=== PATIENT | male | born 1940 | race Caucasian/White ===

== ENCOUNTER 2019-07-27 21:16 | Emergency (ER) | payer MEDICARE, OTHER, SELFPAY ==
--- NOTE | ~2019-07-27 | XR_ITS ---
EXAMINATION: XR abdomen obstructive series DATE: 07/27/2019 23:04 INDICATION: Abdominal pain post peritoneal dialysis catheter placement TECHNIQUE: Frontal supine and upright views of the abdomen were obtained. COMPARISON: 02/27/2019 FINDINGS: Right lower quadrant peritoneal dialysis catheter with distal tip coiled in the deep pelvis. No dilat ed gas-filled loops of bowel. Small amount of free intraperitoneal gas along the falciform ligament a nd below the left hemidiaphragm likely related to peritoneal dialysis catheter placement. Opacities a t the bilateral lower lung zones consistent with small bilateral pleural effusions and associated bas ilar atelectasis and/or pneumonia. Cardiomegaly. IMPRESSION: 1. Small amount of free intraperineal gas in the upper abdomen likely related to peritoneal dialysis catheter placement. 2. Small bilateral pleural effusions with basilar opacities which could represent atelectasis and/or pneumonia. 3. Cardiomegaly. Reviewed, dictated and finalized at location A. [facility] PREPARATION IMPRESSION: 1. Small amount of free intraperineal gas in the upper abdomen likely related to peritoneal dialysis catheter placement. 2. Small bilateral pleural effusions with basilar opacities which could represe nt atelectasis and/or pneumonia. 3. Cardiomegaly.
[2019-07-27 21:22] VITALS: BP 161/67; PULSE 81; RESP 22; TEMP 36.1; O2SAT 100
--- NOTE | 2019-07-27 21:34 | ED.ABDPAIN ---
HPI - Abdominal Pain General Chief Complaint: Abdominal Pain <Igor Christy MD - Last Filed: 07/28/19 03:02> Stated Complaint: dehydrating <Igor Christy MD - Last Filed: 07/28/19 03:02> Time Seen by Provider: 07/27/19 21:32 <Igor Christy MD - Last Filed: 07/28/19 03:02> Source: patient, family () and EMS <Igor Christy MD - Last Filed: 07/28/19 03:02> Mode of arrival: EMS <Igor Christy MD - Last Filed: 07/28/19 03:02> Limitations: clinical condition <Igor Christy MD - Last Filed: 07/28/19 03:02> History of Present Illness HPI narrative: A 78 y/o male presents to the ED with constant generalized ABD pain beginning at 10 AM this morning. He states that he had a dialysis catheter placed this morning around 8:15 AM at [facility] in [place] and that they were going to keep him but decided not too . He reports associated nausea and dry mouth since. He notes that he feels like he has to urinate but can't, however his who is bedside reports that the pt has not been drinking very much lately. He also notes that he believes he is dehydrated and is in need of IV fluids. He states that he has chronic unchanged BLE edema. He denies any vomiting or diarrhea. <Igor Christy MD - Last Filed: 07/28/19 03:02> MD elicited complaint: abdominal pain <Igor Christy MD - Last Filed: 07/28/19 03:02> Pertinent past history: gastrointestinal bleeding <Igor Christy MD - Last Filed: 07/28/19 03:02> Onset (ago): hour(s) (11.5) <Igor Christy MD - Last Filed: 07/28/19 03:02> Pain Consistency: constant <Igor Christy MD - Last Filed: 07/28/19 03:02> Location: diffuse <Igor Christy MD - Last Filed: 07/28/19 03:02> Context: confirms recent surgery/procedure <Igor Christy MD - Last Filed: 07/28/19 03:02> Associated symptoms: nausea and other (dry mouth and urinary retention) <Igor Christy MD - Last Filed: 07/28/19 03:02> Related Data Home Medications: Home Medications Medication Instructions Recorded Confirmed aspirin 81 mg tablet,delayed 81 mg PO DAILY 05/19/19 06/24/19 release atorvastatin 20 mg tablet 20 mg PO DAILY 05/19/19 06/24/19 blood sugar diagnostic #10 each 05/19/19 06/24/19 furosemide 20 mg tablet 40 mg PO BID tablet 05/19/19 06/24/19 multivitamin 1 tablet PO DAILY 05/19/19 06/24/19 omega-3 fatty acids 1,000 mg 1,000 mg PO BID 05/19/19 06/24/19 capsule tamsulosin 0.4 mg capsule 0.4 mg PO DAILY 05/19/19 06/24/19 vit C 250 mg-E 200 unit-zinc 40 1 tablet PO BID 05/19/19 06/24/19 mg-copper 1 [id number] capsule insulin lispro 100 unit/mL 1 sliding scale dose SUB-Q 06/24/19 06/24/19 subcutaneous solution USEASDIRECTD <Igor Christy MD - Last Filed: 07/28/19 03:02> Allergies/Adverse Reactions: Allergies Allergy/AdvReac Type Severity Reaction Status Date / Time gabapentin Allergy Severe Weakness Verified 06/24/19 09:10 <Igor Christy MD - Last Filed: 07/28/19 03:02> Review of Systems Review of Systems: All systems reviewed & are unremarkable except as noted in HPI and below <Igor Christy MD - Last Filed: 07/28/19 03:02> ENT: Reports dry mouth <Igor Christy MD - Last Filed: 07/28/19 03:02> Gastrointestinal: Gastrointestinal: Reports abdominal pain (generalized), Denies diarrhea, Reports nausea and Denies vomiting <Igor Christy MD - Last Filed: 07/28/19 03:02> Genitourinary: Genitourinary: Reports other (urinary retention) <Igor Christy MD - Last Filed: 07/28/19 03:02> [facility] Past Medical History Medical History: Medical History (Updated 07/28/19 @ 01:15 by Amrita Ramirez PA-C) A-fib Anemia Arthritis Bronchitis CAD (coronary artery disease) Cataracts, bilateral CHF (congestive heart failure) Chronic renal failure CKD (chronic kidney disease) Dialysis jensen
[2019-07-27 22:04] LABS: Basophils Percent Auto 0.2 % (0.2-1.2); Hematocrit 34.1 % (42.0-52.0); Hemoglobin 11.1 g/dL (14.0-18.0); Immature Granulocyte Absolute 0.02 K/mm3 (0.00-0.031); Immature Granulocyte Percent A 0.2 % (0-0.5); Lymphocytes Absolute Auto 0.16 K/mm3 (0.9-3.2); Lymphocytes Percent Auto 1.8 % (18.3-44.2); Mean Corpuscular HGB Conc 32.6 g/dl (32-36); Mean Corpuscular Hemoglobin 34.2 pg (26-34); Mean Corpuscular Volume 104.9 fl (80-100); Mean Platelet Volume 11.9 fl (7.4-10.4); Monocytes Absolute Auto 0.4 K/mm3 (0.1-0.6); Monocytes Percent Auto 4.3 % (2.6-8.5); Neutrophils Absolute Auto 8.5 K/mm3 (1.3-6.7); Neutrophils Percent Auto 93.5 % (45.5-73.1); Platelet Count Result 171 k/mm3 (150-375); Red Blood Count 3.25 M/mm3 (4.6-6.20); Red Cell Distribution Width 13.7 % (11.5-14.5); White Blood Count 9.1 K/mm3 (4.5-10.0)
[2019-07-27 22:17] LABS: Alanine Aminotransferase 20 U/L (4-50); Albumin Level 3.5 g/dL (3.5-5.1); Alkaline Phosphatase 181 U/L (38-126); Aspartate Amino Transferase 27 U/L (17-59); Bilirubin,Total 0.9 mg/dL (0.2-1.3); Blood Urea Nitrogen 39 mg/dL (9-20); Calcium 9.1 mg/dL (8.4-10.2); Carbon Dioxide 21 mmol/L (22-30); Chloride 94 mmol/L (98-107); Estimated CRCL calculation 23 ml/min; Estimated Glomerular Filt Rate 25; Glucose 331 mg/dL (75-110); Lipase 16 U/L (23-300); Potassium 4.5 mmol/L (3.4-5.0); Sodium 132 mmol/L (137-145)
[2019-07-27 22:33] LABS: Add Urine Microscopic? YES; Appearance Urine Clear (Clear); Bacteria Urine Trace /hpf; Bilirubin Urine Negative (Negative); Blood Urine Negative (Negative); Color Urine Yellow (Yellow); Glucose Urine UA 2+ mg/dL (Negative); Ketones Urine Trace mg/dL (Negative); Leukocyte Esterase Ur Negative LEU/UL (Negative); Nitrate Urine Negative (Negative); Protein Urine 3+ mg/dL (Negative); Specific Grav Ur 1.016 (1.001-1.035); Squamous Epithelial Cell Urine Occasional /hpf (Few); Urobilinogen Urine Negative mg/dL (<2.0); WBC Urine 0-3 /hpf
--- NOTE | 2019-07-27 22:42 | PC.NURSE ---
LATE ENTRY; AT 2155 THIS RN ATTEMPTED X 3 TO START IV ACCESS W/O SUCCESS, PT TOLERATED WELL.
[2019-07-27 23:30] VITALS: BP 152/66; PULSE 82; RESP 18; O2SAT 100
[2019-07-27] MEDS: ONDANSETRON INJ 4 MG/2 ML VIAL IV PUSH (23:30)
[2019-07-27] MEDS: SODIUM CHLORIDE 0.9% IV 1,000 ML 999 ML IV CONT (23:31)
[2019-07-28 01:30] VITALS: BP 155/62; PULSE 83; RESP 24; O2SAT 100
== END 2019-07-28 01:40 | disposition home or self-care (01) ==
PROVIDERS: Emergency Provider Emergency Medicine; PCP Internal Medicine
DX: R10.84 Generalized abdominal pain (principal); I13.2 Hypertensive heart and chronic kidney disease with heart failure and with stage 5 chronic kidney disease, or end stage renal disease; E11.22 Type 2 diabetes mellitus with diabetic chronic kidney disease; N18.6 End stage renal disease; I50.9 Heart failure, unspecified; I48.91 Unspecified atrial fibrillation; M19.90 Unspecified osteoarthritis, unspecified site; I25.10 Atherosclerotic heart disease of native coronary artery without angina pectoris; Z99.2 Dependence on renal dialysis; Z79.4 Long term (current) use of insulin; E78.00 Pure hypercholesterolemia, unspecified; Z86.73 Personal history of transient ischemic attack (TIA), and cerebral infarction without residual deficits; E03.9 Hypothyroidism, unspecified; E83.119 Hemochromatosis, unspecified; Z98.890 Other specified postprocedural states; Z98.42 Cataract extraction status, left eye; Z98.41 Cataract extraction status, right eye; Z79.82 Long term (current) use of aspirin; I51.7 Cardiomegaly; R91.8 Other nonspecific abnormal finding of lung field
CPT/HCPCS: 36415; 51701; 74019; 80053; 81001; 83690; 85025; 96361; 96374; 99284; J2405; J7030

== ENCOUNTER 2019-07-28 12:09 | Inpatient (IN) | payer MEDICARE, OTHER, SELFPAY ==
[2019-07-28] VITALS (21 sets, daily range): BP systolic 115–145; BP diastolic 44–96; PULSE 59–88; RESP 15–22; TEMP 36.4–37.2; O2SAT 95–97
--- NOTE | 2019-07-28 12:26 | ED.AMS ---
HPI - Altered Mental Status General Chief Complaint: Altered Mental Status Stated Complaint: AMS Time Seen by Provider: 07/28/19 12:23 Source: patient and RN notes reviewed Mode of arrival: EMS Limitations: no limitations History of Present Illness HPI narrative: Pt is a y/o male who presents to the ED, via EMS, with c/o AMS which began prior to arrival to the ED. The pt had a peritoneal catheter line procedure and an umbilical hernia repair with mesh performed yesterday morning at [facility] in [place]. He was discharged shortly after the procedure with a follow-up appointment. Pt reports he was seen yesterday evening at [place] [facility] for urinary incontinence after his surgical procedure was performed. The pt was hemodialysis today at [facility], where they began to notice altered mental status. They report the pt began to exhibit AMS and slurred speech, which prompted them to send the pt to the ED to be evaluated. EMS reports they were unable to read to pt?s blood glucose level en route to the ED, as it said it was too high. This could be due to the fact that the pt?s insulin pump was stopped 2 days prior to the surgical procedure. Discharged yesterday after saying to follow up MD complaint: altered mental status Onset (ago): hour(s) (prior to arrival to the ED) Consistency of symptoms: constant Context: other (post-surgical complication) Associated symptoms: other (slurred speech; urinary incontinence) Related Data Home Medications Medication Instructions Recorded Confirmed aspirin 81 mg tablet,delayed 81 mg PO DAILY 05/19/19 06/24/19 release atorvastatin 20 mg tablet 20 mg PO DAILY 05/19/19 06/24/19 blood sugar diagnostic #10 each 05/19/19 06/24/19 furosemide 20 mg tablet 40 mg PO BID tablet 05/19/19 06/24/19 multivitamin 1 tablet PO DAILY 05/19/19 06/24/19 omega-3 fatty acids 1,000 mg 1,000 mg PO BID 05/19/19 06/24/19 capsule tamsulosin 0.4 mg capsule 0.4 mg PO DAILY 05/19/19 06/24/19 vit C 250 mg-E 200 unit-zinc 40 1 tablet PO BID 05/19/19 06/24/19 mg-copper 1 [id number] capsule insulin lispro 100 unit/mL 1 sliding scale dose SUB-Q 06/24/19 06/24/19 subcutaneous solution USEASDIRECTD Allergies Allergy/AdvReac Type Severity Reaction Status Date / Time gabapentin Allergy Severe Weakness Verified 06/24/19 09:10 Review of Systems Review of Systems: All systems reviewed & are unremarkable except as noted in HPI and below Genitourinary: Genitourinary: Reports urinary incontinence Neurologic: Reports other (AMS; slurred speech) [facility] Past Medical History Medical History (Updated 07/28/19 @ 16:09 by Juanita Romero MD) A-fib Anemia Arthritis Bronchitis CAD (coronary artery disease) Cataracts, bilateral CHF (congestive heart failure) Chronic renal failure CKD (chronic kidney disease) Dialysis patient DM (diabetes mellitus) Essential hypertension Hemochromatosis History of GI bleed History of inguinal hernia History of pneumonia Hypercholesterolemia Hypothyroidism Renal disease Shingles TIA (transient ischemic attack) Type 2 diabetes mellitus without complication, with long-term current use of insulin Wrist fracture, left Surgical History Surgical History (Updated 07/27/19 @ 21:45 by Jose E Richards) H/O left wrist surgery History of inguinal hernia repair Hx of bilateral cataract extraction Social History Social History (Updated 07/27/19 @ 21:45 by Jose E Richards) Smoking status: Former smoker Second hand tobacco smoke exposure: Yes Smoking end date: 06/23/1966 Alcohol intake: never Gender identity (if verbalized by the patient): Male Exam Const: General: cooperative, no acute distress and alert Nutritional Appearance: well nourished Orientation/consciousness: patient oriented x3 Limitations: no limitations HENMT: Mouth: Yes lip normal and Yes moist mucous membranes Resp: Effort & Inspection: normal respiratory effort Auscultation: clear to auscultation bila
[2019-07-28 12:30] LABS: Glucose Point of Care > 500 (65-105)
[2019-07-28 13:03] LABS: Hematocrit 33.9 % (42.0-52.0); Hemoglobin 10.8 g/dL (14.0-18.0); Mean Corpuscular HGB Conc 31.9 g/dl (32-36); Mean Corpuscular Hemoglobin 34.3 pg (26-34); Mean Corpuscular Volume 107.6 fl (80-100); Mean Platelet Volume 12.1 fl (7.4-10.4); Platelet Count Result 181 k/mm3 (150-375); Red Blood Count 3.15 M/mm3 (4.6-6.20); Red Cell Distribution Width 14.1 % (11.5-14.5)
[2019-07-28 13:12] LABS: Band Neutrophils Percent 1 % (0-6); Lymphocytes Absolute Manual 0.66 K/mm3 (1.1-4.5); Monocytes Absolute Manual 0.22 K/mm3 (0.1-0.90); Monocytes Percent Manual 2 % (3-9); Neutrophils Absolute Manual 10.12 K/mm3 (1.3-6.7); Neutrophils Percent Manual 91 % (46-73); Platelet Estimate Adequate (Adequate); Total Cells Counted 100
[2019-07-28 13:13] LABS: Crenated RBC 2+ (NORMAL)
[2019-07-28 13:32] LABS: Alanine Aminotransferase 24 U/L (4-50); Albumin Level 3.5 g/dL (3.5-5.1); Alkaline Phosphatase 174 U/L (38-126); Aspartate Amino Transferase 34 U/L (17-59); Blood Urea Nitrogen 57 mg/dL (9-20); Carbon Dioxide 9 mmol/L (22-30); Chloride 92 mmol/L (98-107); Estimated CRCL calculation 18 ml/min; Estimated Glomerular Filt Rate 18; Glucose 585 mg/dL (75-110); Potassium 6.1 mmol/L (3.4-5.0); Sodium 128 mmol/L (137-145)
[2019-07-28] MEDS: INSULIN HUMAN REGULAR (*BKC) 100 UNITS/ML 10 UNITS IV PUSH (13:46)
[2019-07-28 14:18] LABS: Add Urine Microscopic? YES; Amorphous Sediment Urine Few; Appearance Urine Clear (Clear); Bilirubin Urine Negative (Negative); Blood Urine 1+ (Negative); Color Urine Yellow (Yellow); Glucose Urine UA 3+ mg/dL (Negative); Ketones Urine Trace mg/dL (Negative); Leukocyte Esterase Ur Negative LEU/UL (Negative); Nitrate Urine Negative (Negative); Protein Urine 3+ mg/dL (Negative); Specific Grav Ur 1.017 (1.001-1.035); Squamous Epithelial Cell Urine Few /hpf (Few); Urobilinogen Urine Negative mg/dL (<2.0); WBC Urine 0-3 /hpf
--- NOTE | 2019-07-28 16:19 | PC.NURSE ---
This patient, Tadeo Jean-Baptiste, was admitted to 2 Medical Room 259-01. Patient/family oriented to hospital policies and general routines including ID bracelet, bed and alarms, visiting hours, pain management, procedures, bathroom and other care routines, personal items, smoking policy, room service/diet, and visiting hours. Valuables list has been completed. Information on how to activate the Rapid Response Team has been discussed. Patient/Family are encouraged to report perceived risks to care and to ask questions if they do not understand what they are told or what they should do.
[2019-07-28] MEDS: INSULIN ASPART (*BKC) 100 UNITS/ML 10 UNITS SUB-Q ×2 (17:09→18:50)
--- NOTE | 2019-07-28 17:38 | PC.NURSE ---
Spoke with dialysis nurse and clarified when Dr. Colunga is planning for dialysis treatment. Per dialysis nurse orders will be for dialysis tomorrow 07/29/2019. Notified China Cortes NP patient of plans.
--- NOTE | 2019-07-28 17:50 | PC.NURSE ---
Notified by dialysis nurse that Dr. Wiley will be in to see patient at the bedside and will more than likely have orders placed for hemodiaylsis tonight 07/28/2019. Updated China Cortes NP on plan of care and that patient needs code status updated in chart.
[2019-07-28 17:55] LABS: Glucose Point of Care > 500 (65-105)
--- NOTE | 2019-07-28 18:00 | PM.IMHP ---
H&P: HPI History of Present Illness Chief complaint: diabetic hyperkalemia/end stage renal disease on d Narrative: Tadeo Jean-Baptiste is a 78 year old male WHO HAS END-STAGE RENAL DISEASE AND HAS DIALYSIS ON Friday. The patient went to dialysis today but had been confused and had slurred speech. So therefore he was sent to the emergency room here at [facility]. Patient was here at [facility] last night as well but was sent home. The patient stated that he had his insulin pump off 2 days prior to having surgery. It looks like his surgery was yesterday at [facility]. He had a peritoneal dialysis in the ventral hernia repair. The patient stated that he did not refill his insulin cartridge prior to going to dialysis today. So he may have gone 3 days without any insulin. Was noted to be 6.1 today and glucose 585. Yesterday his blood sugar was 331. He is a very brittle diabetic and typically uses his own insulin pump. However today the patient is too confused to be able to uses pump. Anion gap was noted to be 27. Patient was given IV insulin in the emergency room. However the patient was still in the 500s we gave him subcu NovoLog as well. Nephrology has been consulted. Date of service 07/28/2019 Review of Systems Review of Systems: Narrative: Patient stated he has very dry any feels dehydrated. He is very hard of hearing but does not have his hearing aids with him. All systems reviewed & are unremarkable except as noted in HPI and below Constitutional: Constitutional: Reports as per HPI and Reports no additional constitutional complaints Eyes: Eyes: Reports as per HPI and Reports no additional eye complaints ENT: Reports system reviewed and no additional complaints, except as documented, Reports Normal hearing present and Reports hearing loss (Very hard of hearing does not have hearing aids with him) Cardiovascular: Cardiovascular: Reports no additional cardiovascular complaints Respiratory: Respiratory: Reports no additional respiratory complaints and Reports no additional respiratory complaints Gastrointestinal: Gastrointestinal: Reports as per HPI and Reports no additional gastrointestinal complaints Musculoskeletal: Musculoskeletal: Reports no additional musculoskeletal complaints Integumentary/Breasts: Skin/Breast: Reports system reviewed and no additional complaints, except as docu and Reports as per HPI Neurologic: Reports system reviewed and no additional complaints, except as documented, Reports as per HPI and Reports Normal hearing present Psychiatric: Psychiatric: Reports no additional psychiatric complaints and Reports as per HPI Endocrine: Endocrine: Reports no additional endocrine complaints Hematologic/Lymphatic: Hematologic/Lymphatic: Reports no additional hematologic/lymphatic complaints Allergic/Immunologic: Allergic/Immunologic: Reports no additional allergic/immunologic complaints [facility] Past Medical History Medical History (Updated 07/28/19 @ 18:24 by China Cortes NP) A-fib Anemia Of chronic disease Arthritis AV fistula Left upper arm BPH (benign prostatic hyperplasia) Bronchitis CAD (coronary artery disease) Cataracts, bilateral CHF (congestive heart failure) Diastolic Chronic renal failure End-stage renal disease on dialysis Friday CKD (chronic kidney disease) Dialysis patient DM (diabetes mellitus) Essential hypertension Hemochromatosis History of GI bleed History of inguinal hernia History of pneumonia Hypercholesterolemia Hypothyroidism Peritoneal dialysis catheter in place Renal disease Shingles TIA (transient ischemic attack) X2 Type 2 diabetes mellitus without complication, with long-term current use of insulin Wrist fracture, left Surgical History Surgical History (Updated 07/28/19 @ 18:11 by China Cortes NP) H/O left wrist surgery Pin History of inguinal hernia repair Ventral hernia repair yesterday
--- NOTE | 2019-07-28 18:24 | PM.CNNEP ---
Assessment and Plan Assessment and plan (1) End stage renal disease on dialysis: Code(s): N18.6 - End stage renal disease; Z99.2 - Dependence on renal dialysis Status: Acute Assessment and Plan: The patient has end-stage kidney disease. He is on hemodialysis now. He is switching over to peritoneal dialysis soon. For that purpose of peritoneal dialysis catheter was placed this week. (2) Acute hyperkalemia: Code(s): E87.5 - Hyperkalemia Status: Acute Assessment and Plan: His potassium is elevated. We will do dialysis today. Of course is high sugars have something to do with this as well. (3) Diabetes mellitus with hyperglycemia, with long-term current use of insulin: Qualifiers: Diabetes mellitus type: type 2 Qualified Code(s): E11.65 - Type 2 diabetes mellitus with hyperglycemia; Z79.4 - halfway (current) use of insulin Code(s): E11.65 - Type 2 diabetes mellitus with hyperglycemia; Z79.4 - termination clerk (current) use of insulin Status: Chronic Assessment and Plan: He has a very high glucose. His bicarbonate level is very low. We can check a beta hydroxybutyrate. His anion gap is high. The high anion gap could be due to his renal insufficiency and DKA is always in the differential. We can repeat this bicarbonate level before he starts dialysis and see where we are. (4) CHF (congestive heart failure): Code(s): I50.9 - Heart failure, unspecified Status: Chronic Assessment and Plan: The patient has a history of congestive heart failure. He sees a technical writer. His last echo shows diastolic dysfunction but normal LV function. (5) Anemia: Code(s): D64.9 - Anemia, unspecified Status: Chronic Assessment and Plan: He has anemia of chronic kidney disease. He gets Epogen with dialysis. (6) A-fib: Code(s): I48.91 - Unspecified atrial fibrillation Status: Chronic Assessment and Plan: He has atrial fibrillation and is on Eliquis for this. (7) BPH (benign prostatic hyperplasia): Code(s): N40.0 - Benign prostatic hyperplasia without lower urinary tract symptoms Status: Chronic Assessment and Plan: He is having some trouble urinating. They were able to get a urinalysis and this does not show infection. History of Present Illness Reason for Consult Consult date: 07/28/19 Chief Complaint Chief complaint: diabetic hyperkalemia/end stage renal disease on d History of Present Illness Narrative: Tadeo is a very pleasant 78-year-old gentleman who has multiple medical problems including end-stage renal disease on dialysis 3 times a week, recent peritoneal dialysis catheter placement, diabetes, hypertension, atrial fibrillation, hyperlipidemia, congestive heart failure, hypothyroidism, BPH. The patient recently had his peritoneal dialysis catheter placed. His insulin pump was stopped for purposes of the surgery. However the pump was never restarted. He went to dialysis this morning at [facility] and he was confused and hypoxic. The patient went to the emergency room from there. He has not had his dialysis yet. In the emergency room he was found to have a very high sugar and he was admitted. His potassium is also high at 6. He denies any chest pain or shortness of breath. He has been eating okay. He has no bloody foamy cloudy or smelly urine. He does normally makes some urine but today he has not been able to make much. He has had no fevers or chills. No pain with urination. Social history: He does not smoke or drink. Family history: Negative for kidney disease Review of Systems Constitutional: Constitutional: Reports no additional constitutional complaints Eyes: Eyes: Reports no additional eye complaints ENT: Reports system reviewed and no additional complaints, except as documented Cardiovascular: Cardiovascular: Reports no additional cardiovascular complaints Res
[2019-07-28] MEDS: SODIUM CHLORIDE 0.9% IV 500 ML IV CONT (18:36)
[2019-07-28 18:42] LABS: Blood Urea Nitrogen 63 mg/dL (9-20); Calcium 8.9 mg/dL (8.4-10.2); Carbon Dioxide 13 mmol/L (22-30); Chloride 91 mmol/L (98-107); Estimated CRCL calculation 17 ml/min; Estimated Glomerular Filt Rate 17; Glucose 571 mg/dL (75-110); Potassium 4.9 mmol/L (3.4-5.0); Sodium 128 mmol/L (137-145)
[2019-07-28 18:49] LABS: Beta-Hydroxybutyrate/Acetoacetate 3.42 mmol/L (0.02-0.27)
[2019-07-28 18:55] LABS: Hemoglobin A1C 7.9 % (<5.7)
[2019-07-28 19:00] LABS: Glucose Point of Care 498 (65-105)
[2019-07-28 19:04] LABS: Albumin Level 3.4 g/dL (3.5-5.1); Phosphorus 7.3 mg/dL (2.5-4.5)
[2019-07-28 19:13] LABS: Hepatitis B Surface Antigen Negative (Negative)
[2019-07-28 19:29] LABS: Hepatitis B Surface Anti Res Negative
[2019-07-28 19:41] LABS: Thyroid Stimulating Hormone Reflex 0.869 uIU/mL (0.465-4.68)
[2019-07-28 20:04] LABS: Blood Urea Nitrogen 57 mg/dL (9-20); Calcium 7.5 mg/dL (8.4-10.2); Carbon Dioxide 14 mmol/L (22-30); Chloride 99 mmol/L (98-107); Estimated CRCL calculation 19 ml/min; Estimated Glomerular Filt Rate 20; Glucose 485 mg/dL (75-110); Potassium 4.2 mmol/L (3.4-5.0); Sodium 131 mmol/L (137-145)
--- NOTE | 2019-07-28 20:23 | PC.NURSE ---
Patient transferred to ICU at 2014. Patient received by Abelino in ICU.
[2019-07-28 21:06] LABS: Glucose Point of Care 455 (65-105)
[2019-07-28] MEDS: EPOETIN ALFA 10,000 UNITS/ML VIAL 10000 UNITS IV PUSH (21:14)
[2019-07-28] MEDS: INSULIN HUMAN REGULAR (*BKC) 100 UNITS in SODIUM CHLORIDE 0.9% IV 99 ML 7.9 UNITS IV CONT (21:16)
--- NOTE | 2019-07-28 21:43 | PC.NURSE ---
Start insulin drip per Dr. Blanc even while patient is getting dialysis. No bolus. Do not take off any fluid during dialysis per Dr. Blanc. Brigette dialysis nurse notified. Dr. Wiley notified. Dr. Wiley okay with no fluid removal and the start of the insulin drip.
[2019-07-28 22:06] LABS: Glucose Point of Care 311 (65-105)
[2019-07-28 23:05] LABS: Glucose Point of Care 259 (65-105)
[2019-07-29] VITALS (11 sets, daily range): BP systolic 121–165; BP diastolic 49–91; PULSE 65–77; RESP 12–26; TEMP 36.2–36.9; O2SAT 90–99
[2019-07-29] MEDS: APIXABAN 2.5 MG TABLET PO ×3 (00:04→16:40)
[2019-07-29] MEDS: FINASTERIDE 5 MG TABLET PO ×2 (00:04→17:35)
[2019-07-29] MEDS: FUROSEMIDE 40 MG TABLET PO ×3 (00:04→16:40)
[2019-07-29 00:11] LABS: Glucose Point of Care 197 (65-105)
[2019-07-29 00:19] LABS: Glucose Point of Care > 500 (65-105)
[2019-07-29 01:04] LABS: Blood Urea Nitrogen 39 mg/dL (9-20); Calcium 8.5 mg/dL (8.4-10.2); Carbon Dioxide 26 mmol/L (22-30); Chloride 93 mmol/L (98-107); Estimated CRCL calculation 26 ml/min; Estimated Glomerular Filt Rate 29; Glucose 190 mg/dL (75-110); Potassium 3.4 mmol/L (3.4-5.0); Sodium 131 mmol/L (137-145)
[2019-07-29 01:21] LABS: Glucose Point of Care 142 (65-105)
--- NOTE | 2019-07-29 01:25 | PC.NURSE ---
Spoke with Dr. Perez regarding Agap of 12. Okay to stop insulin drip and order sliding scale insulin
[2019-07-29 02:25] LABS: Glucose Point of Care 108 (65-105)
[2019-07-29 04:04] LABS: Glucose Point of Care 132 (65-105)
[2019-07-29 04:34] LABS: Basophils Percent Auto 0.3 % (0.2-1.2); Eosinophils Percent Auto 0.3 % (0-4.4); Hematocrit 31.1 % (42.0-52.0); Hemoglobin 10.4 g/dL (14.0-18.0); Immature Granulocyte Absolute 0.03 K/mm3 (0.00-0.031); Immature Granulocyte Percent A 0.3 % (0-0.5); Lymphocytes Absolute Auto 0.32 K/mm3 (0.9-3.2); Lymphocytes Percent Auto 2.9 % (18.3-44.2); Mean Corpuscular HGB Conc 33.4 g/dl (32-36); Mean Corpuscular Volume 101.6 fl (80-100); Mean Platelet Volume 11.7 fl (7.4-10.4); Monocytes Absolute Auto 1.1 K/mm3 (0.1-0.6); Neutrophils Absolute Auto 9.4 K/mm3 (1.3-6.7); Neutrophils Percent Auto 86.2 % (45.5-73.1); Platelet Count Result 167 k/mm3 (150-375); Red Blood Count 3.06 M/mm3 (4.6-6.20); Red Cell Distribution Width 13.7 % (11.5-14.5); White Blood Count 10.9 K/mm3 (4.5-10.0)
[2019-07-29 04:56] LABS: Alanine Aminotransferase 23 U/L (4-50); Albumin Level 3.1 g/dL (3.5-5.1); Alkaline Phosphatase 157 U/L (38-126); Aspartate Amino Transferase 40 U/L (17-59); Bilirubin,Total 0.6 mg/dL (0.2-1.3); Blood Urea Nitrogen 40 mg/dL (9-20); Calcium 8.4 mg/dL (8.4-10.2); Carbon Dioxide 25 mmol/L (22-30); Chloride 95 mmol/L (98-107); Estimated CRCL calculation 23 ml/min; Estimated Glomerular Filt Rate 25; Glucose 149 mg/dL (75-110); Magnesium 2.1 mg/dL (1.6-2.3); Potassium 3.9 mmol/L (3.4-5.0); Sodium 134 mmol/L (137-145)
[2019-07-29] MEDS: LEVOTHYROXINE SODIUM 125 MCG TABLET PO (06:32)
[2019-07-29 08:17] LABS: Glucose Point of Care 270 (65-105)
--- NOTE | 2019-07-29 08:17 | PM.PNNEP ---
Progress Note: A&P Assessment and Plan (1) End stage renal disease on dialysis: Code(s): N18.6 - End stage renal disease; Z99.2 - Dependence on renal dialysis Status: Acute Assessment and Plan: The patient has end-stage kidney disease. He received dialysis last night. He has a PD catheter in place for when he switches to PD. (2) Acute hyperkalemia: Code(s): E87.5 - Hyperkalemia Status: Acute Assessment and Plan: His potassium is back to normal after dialysis. (3) Diabetes mellitus with hyperglycemia, with long-term current use of insulin: Qualifiers: Diabetes mellitus type: type 2 Qualified Code(s): E11.65 - Type 2 diabetes mellitus with hyperglycemia; Z79.4 - superintendent terminal (current) use of insulin Code(s): E11.65 - Type 2 diabetes mellitus with hyperglycemia; Z79.4 - superintendent terminal (current) use of insulin Status: Chronic Assessment and Plan: Sugars have improved. Beta hydroxybutyrate was elevated anywhere he received insulin drip last night. Now the insulin drip is off, and the sugars are better. His anion gap was 21 yesterday with his bicarb of 9. Now it is down to 14 with a bicarb of 25. This is probably his baseline. (4) CHF (congestive heart failure): Code(s): I50.9 - Heart failure, unspecified Status: Chronic Assessment and Plan: The patient has a history of congestive heart failure. He sees a implementation director. His last echo shows diastolic dysfunction but normal LV function. Volume status looks okay. (5) Anemia: Code(s): D64.9 - Anemia, unspecified Status: Chronic Assessment and Plan: He has anemia of chronic kidney disease. He gets Epogen with dialysis. (6) A-fib: Code(s): I48.91 - Unspecified atrial fibrillation Status: Chronic Assessment and Plan: He has atrial fibrillation and is on Eliquis for this. (7) BPH (benign prostatic hyperplasia): Code(s): N40.0 - Benign prostatic hyperplasia without lower urinary tract symptoms Status: Chronic Assessment and Plan: He is having some trouble urinating. They were able to get a urinalysis and this does not show infection. I asked nursing to get a bladder scan to see if he is retaining. He is already on finasteride and tamsulosin. Subjective Date/time seen: 07/29/19 08:17 Interval history: Patient is a little confused but better. He says he is still not making urine. The nurse agrees. He says that he made urine several times per day before the PD catheter went in. He has no chest pain or shortness of breath. Review of Systems Cardiovascular: Cardiovascular: Reports no additional cardiovascular complaints Respiratory: Respiratory: Reports no additional respiratory complaints Gastrointestinal: Gastrointestinal: Reports no additional gastrointestinal complaints Genitourinary: Genitourinary: Reports no additional male genitourinary complaints Exam Narrative: Exam Narrative: Well developed well-nourished in no acute distress Lungs clear Heart regular without rub Abdomen bowel sounds positive soft nontender Extremities no edema Skin no rash Objective Data Vital Signs Vital Signs: Vital Signs - 24 hr 07/28/19 12:05 07/28/19 14:29 07/28/19 16:28 Temperature 36.4 C Pulse Rate 88 75 73 Respiratory Rate 22 H 15 Blood Pressure 129/44 L 115/55 L Pulse Oximetry 97 96 07/28/19 16:30 07/28/19 20:00 07/28/19 20:20 Temperature 36.6 C 36.7 C Pulse Rate 70 66 67 Respiratory Rate 16 19 20 Blood Pressure 136/44 L 145/58 H Pulse Oximetry 97 96 97 07/28/19 20:27 07/28/19 20:43 07/28/19 20:56 Temperature 36.7 C Pulse Rate 69 59 L 65 Respiratory Rate 18 Blood Pressure 139/60 145/58 H 142/55 H Pulse Oximetry 97 07/28/19 21:00 07/28/19 21:15 07/28/19 21:30 Temperature Pulse Rate 64 65 66 Respiratory Rate Blood Pressure 133/80 144/51 H 139/55 L Pulse Oximet
[2019-07-29] MEDS: ASPIRIN 81 MG ENTERIC TABLET PO (08:26)
[2019-07-29] MEDS: ATORVASTATIN 20 MG TABLET PO (08:26)
[2019-07-29] MEDS: INSULIN ASPART (*BKC) 100 UNITS/ML SUB-Q ×3 (08:27→16:59)
[2019-07-29] MEDS: OMEGA 3 POLYUNSAT FATTY ACIDS 1 GM CAP PO (08:27)
[2019-07-29] MEDS: OPTI-GEN TAB 2 TABLET PO (08:27)
[2019-07-29] MEDS: TAMSULOSIN HCL 0.4 MG CAPSULE PO (08:27)
[2019-07-29] MEDS: INSULIN DETEMIR 100 UNITS/ML SUB-Q (11:07)
[2019-07-29 12:44] LABS: Glucose Point of Care 333 (65-105)
--- NOTE | 2019-07-29 13:01 | WPDCNINT ---
Assessment and Plan Assessment and plan (1) DKA (diabetic ketoacidoses): Code(s): E11.10 - Type 2 diabetes mellitus with ketoacidosis without coma Status: Acute Assessment and Plan: patient has a history of known diabetes on insulin pump, was off the insulin pump for 2 days prior to the procedure on 07/27/2023 ventral hernia repair as well as peritoneal dialysis catheter insertion. In presented with altered mental status, hyperglycemia with metabolic acidosis and was diagnosed with DKA - placed on insulin infusion, overnight metabolic acidosis and anion gap have corrected and placed on Levemir - continue to monitor blood sugars - once he was 7.9 on this admission (2) Acute hyperkalemia: Code(s): E87.5 - Hyperkalemia Status: Acute Assessment and Plan: patient presented with hyperkalemia with potassium of 6.1, patient received hemodialysis with improvement in his potassium level which was 3.9 this morning - , continue to monitor (3) Altered mental status: Qualifiers: Altered mental status type: somnolence Qualified Code(s): R40.0 - Somnolence Code(s): R41.82 - Altered mental status, unspecified Status: Acute Assessment and Plan: patient with altered mental status most likely related to metabolic acidosis, DKA. - as DKA was resolved patient started to be more alert, oriented and awake. - continue to monitor (4) Anemia: Code(s): D64.9 - Anemia, unspecified Status: Chronic Assessment and Plan: anemia likely related to anemia of chronic disease and/or renal disease. - patient continues to receive Epogen with dialysis (5) Hypothyroidism: Qualifiers: Hypothyroidism type: acquired Qualified Code(s): E03.9 - Hypothyroidism, unspecified Code(s): E03.9 - Hypothyroidism, unspecified Status: Chronic Assessment and Plan: continue levothyroxine (6) CHF (congestive heart failure): Code(s): I50.9 - Heart failure, unspecified Status: Chronic Assessment and Plan: patient on Lasix, will continue dialysis for removal of fluid per Nephrology (7) Chronic renal failure: Qualifiers: Chronic kidney disease stage: stage 5 Qualified Code(s): N18.5 - Chronic kidney disease, stage 5 Code(s): N18.9 - Chronic kidney disease, unspecified Status: Chronic Assessment and Plan: patient with history of end-stage renal disease on hemodialysis - a PD catheter was placed on 07/27/2019 and will be switched to PD per Nephrology (8) Hypercholesterolemia: Code(s): E78.00 - Pure hypercholesterolemia, unspecified Status: Chronic Assessment and Plan: continue statin Additional Plan discussed with patient updated with his condition and plan of care. I answered all questions Code status: Full code Critical care time spent: 43 minutes Due to a high probability of clinically significant, life threatening deterioration, the patient required my highest level of preparedness to intervene emergently and I personally spent this critical care time directly and personally managing the patient. This critical care time included obtaining a history; examining the patient; pulse oximetry; ordering and review of studies; arranging urgent treatment with development of a management plan; evaluation of patient's response to treatment; frequent reassessment; and discussions with other providers. It was exclusive of separately billable procedures and treating other patients and teaching time. Please see Assessment and Plan section and the rest of the note for further information on patient assessment and treatment [employer] Consult Note Consult date: 07/29/19 Time Seen: 07:04 Reason for consult: diabetic ketoacidosis, hyperkalemia, end-stage renal disease on hemodialysis HPI: Tadeo Jean-Baptiste is a 78 year old male with past medical history of end-stage renal disease on hemodi
--- NOTE | 2019-07-29 13:05 | PC.NURSE ---
This patient, Tadeo Jean-Baptiste, was transferred to [ [facility]] on 07/29/19 at 1305. Personal belongings sent with patient. Report given to [Catarina ADAME ]. Appropriate documentation sent with patient.
--- NOTE | 2019-07-29 13:31 | PC.NURSE ---
Transferred to Room 332-2 from ICU per bed at 1300.
[2019-07-29] MEDS: INSULIN DETEMIR 100 UNITS/ML 12 UNITS SUB-Q (14:35)
--- NOTE | 2019-07-29 14:37 | PM.IMPN ---
Progress Note: A&P Assessment and Plan (1) Altered mental status: Qualifiers: Altered mental status type: somnolence Qualified Code(s): R40.0 - Somnolence Code(s): R41.82 - Altered mental status, unspecified Status: Acute Assessment and Plan: Patient is 78-year-old male with history of end-stage renal disease on hemodialysis as well as history of diabetes on insulin pump, patient had been off his insulin from 2 days prior to coming to emergency department for possible surgical procedures however while at dialysis and patient was confused was brought to the emergency department for further evaluation he was found to have a elevated blood sugar of 500 hyperkalemia and was in DKA patient was transferred to ICU patient was started on insulin fusion gently hydrated is blood sugar monitor now close to target his clinically stable and was out ICU today on medical floor, is feeling better is eating his lunch denies any complaint of chest pain shortness of breath or dizziness he wants to go home however it is been decided that he will be discharged home tomorrow after dialysis, back on his insulin pump I have discussed this with the his nurse Catarina and they will monitor him on sliding scale (2) Diabetes mellitus with hyperglycemia, with long-term current use of insulin: Qualifiers: Diabetes mellitus type: type 2 Qualified Code(s): E11.65 - Type 2 diabetes mellitus with hyperglycemia; 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.4 - 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 of insulin Code(s): E11.65 - Type 2 diabetes mellitus with hyperglycemia; Z79.4 - 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 of insulin Status: Chronic Assessment and Plan: plan is above (3) End stage renal disease on dialysis: Code(s): N18.6 - End stage renal disease; Z99.2 - Dependence on renal dialysis Status: Acute Assessment and Plan: Patient is seen by hot mix operator will have scheduled dialysis potassium is close to target plan is to discharge the patient home after dialysis tomorrow (4) CHF (congestive heart failure): Code(s): I50.9 - Heart failure, unspecified Status: Chronic Assessment and Plan: Patient is on Lasix (5) A-fib: Code(s): I48.91 - Unspecified atrial fibrillation Status: Chronic Assessment and Plan: Rate controlled at this time. He is on Eliquis. (6) Anemia: Code(s): D64.9 - Anemia, unspecified Status: Chronic Assessment and Plan: Most likely due to his chronic renal failure. He has a history of hemochromatosis and had phlebotomy treatment in the past. However the hemoglobin 10.8 today. (7) Hypercholesterolemia: Code(s): E78.00 - Pure hypercholesterolemia, unspecified Status: Chronic Assessment and Plan: Continue with [place] 3 and atorvastatin (8) Hypothyroidism: Qualifiers: Hypothyroidism type: acquired Qualified Code(s): E03.9 - Hypothyroidism, unspecified Code(s): E03.9 - Hypothyroidism, unspecified Status: Chronic Assessment and Plan: Continue levothyroxine. Check thyroid levels (9) BPH (benign prostatic hyperplasia): Code(s): N40.0 - Benign prostatic hyperplasia without lower urinary tract symptoms Status: Chronic Assessment and Plan: Continue with finasteride and Flomax Subjective Date/time seen: 07/29/19 14:37 Patient is 78-year-old male with history of end-stage renal disease on hemodialysis as well as history of diabetes on insulin pump, patient had been off his insulin from 2 days prior to coming to emergency department for possible surgical procedures however while at dialysis and patient was confused was brought to the emergency department for further evaluation he was found to have a elevated blood sugar of 500 hyperkalemia and was in DKA patient was transferred to ICU patient was started on insulin fusion gently hydrated is blood sugar monitor now close to target his clinically stable and was out ICU today o
[2019-07-29 16:55] LABS: Glucose Point of Care 343 (65-105)
[2019-07-29 19:44] LABS: Glucose Point of Care 304 (65-105)
[2019-07-29] MEDS: INSULIN DETEMIR 100 UNITS/ML 15 UNITS SUB-Q (21:00)
[2019-07-30] VITALS (7 sets, daily range): BP systolic 134–150; BP diastolic 52–60; PULSE 63–77; RESP 18; TEMP 36.6–36.7; O2SAT 94–96
[2019-07-30] MEDS: LEVOTHYROXINE SODIUM 125 MCG TABLET PO (06:11)
[2019-07-30 06:29] LABS: Hematocrit 31.3 % (42.0-52.0); Hemoglobin 10.4 g/dL (14.0-18.0); Mean Corpuscular HGB Conc 33.2 g/dl (32-36); Mean Corpuscular Hemoglobin 34.4 pg (26-34); Mean Corpuscular Volume 103.6 fl (80-100); Mean Platelet Volume 11.3 fl (7.4-10.4); Platelet Count Result 156 k/mm3 (150-375); Red Blood Count 3.02 M/mm3 (4.6-6.20); Red Cell Distribution Width 13.9 % (11.5-14.5); White Blood Count 7.5 K/mm3 (4.5-10.0)
[2019-07-30 06:48] LABS: Albumin Level 2.8 g/dL (3.5-5.1); Blood Urea Nitrogen 62 mg/dL (9-20); Calcium 8.2 mg/dL (8.4-10.2); Carbon Dioxide 27 mmol/L (22-30); Chloride 96 mmol/L (98-107); Estimated CRCL calculation 16 ml/min; Estimated Glomerular Filt Rate 16; Glucose 70 mg/dL (75-110); Phosphorus 4.8 mg/dL (2.5-4.5); Potassium 3.6 mmol/L (3.4-5.0); Sodium 132 mmol/L (137-145)
[2019-07-30 06:58] LABS: Glucose Point of Care 57 (65-105)
[2019-07-30] MEDS: GLUCOSE ORAL GEL 15 GM OF GLUCSE IN 37.5 GM TUBE PO (07:04)
[2019-07-30 07:07] LABS: Glucose Point of Care 49 (65-105)
[2019-07-30 07:11] LABS: Glucose Point of Care 51 (65-105)
[2019-07-30 07:52] LABS: Glucose Point of Care 93 (65-105)
[2019-07-30] MEDS: APIXABAN 2.5 MG TABLET PO (08:26)
[2019-07-30] MEDS: FUROSEMIDE 40 MG TABLET PO (08:26)
[2019-07-30 12:24] LABS: Glucose Point of Care 136 (65-105)
--- NOTE | 2019-07-30 15:11 | PM.DS ---
DS: Diagnosis Admitting Diagnosis Admitting Diagnosis: Somnolence Discharge Diagnosis (1) Altered mental status: Qualifiers: Altered mental status type: somnolence Qualified Code(s): R40.0 - Somnolence Code(s): R41.82 - Altered mental status, unspecified Status: Acute Assessment and Plan: Patient is 78-year-old male with history of end-stage renal disease on hemodialysis as well as history of diabetes on insulin pump, patient had been off his insulin from 2 days prior to coming to emergency department for possible surgical procedures however while at dialysis and patient was confused was brought to the emergency department for further evaluation he was found to have a elevated blood sugar of 500 hyperkalemia and was in DKA patient was transferred to ICU patient was started on insulin fusion gently hydrated is blood sugar monitor now close to target his clinically stable and was out ICU today on medical floor, is feeling better is eating his lunch denies any complaint of chest pain shortness of breath or dizziness he wants to go home however it is been decided that he will be discharged home tomorrow after dialysis, back on his insulin pump I have discussed this with the his nurse Catarina and they will monitor him on sliding scale (2) Diabetes mellitus with hyperglycemia, with long-term current use of insulin: Qualifiers: Diabetes mellitus type: type 2 Qualified Code(s): E11.65 - Type 2 diabetes mellitus with hyperglycemia; 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 Code(s): E11.65 - Type 2 diabetes mellitus with hyperglycemia; Z79.4 - USP (current) use of insulin Status: Chronic Assessment and Plan: plan is above (3) End stage renal disease on dialysis: Code(s): N18.6 - End stage renal disease; Z99.2 - Dependence on renal dialysis Status: Acute Assessment and Plan: Patient is seen by fan blade truer will have scheduled dialysis potassium is close to target plan is to discharge the patient home after dialysis tomorrow (4) CHF (congestive heart failure): Code(s): I50.9 - Heart failure, unspecified Status: Chronic Assessment and Plan: Patient is on Lasix (5) A-fib: Code(s): I48.91 - Unspecified atrial fibrillation Status: Chronic Assessment and Plan: Rate controlled at this time. He is on Eliquis. (6) Anemia: Code(s): D64.9 - Anemia, unspecified Status: Chronic Assessment and Plan: Most likely due to his chronic renal failure. He has a history of hemochromatosis and had phlebotomy treatment in the past. However the hemoglobin 10.8 today. (7) Hypercholesterolemia: Code(s): E78.00 - Pure hypercholesterolemia, unspecified Status: Chronic Assessment and Plan: Continue with [place] 3 and atorvastatin (8) Hypothyroidism: Qualifiers: Hypothyroidism type: acquired Qualified Code(s): E03.9 - Hypothyroidism, unspecified Code(s): E03.9 - Hypothyroidism, unspecified Status: Chronic Assessment and Plan: Continue levothyroxine. Check thyroid levels (9) BPH (benign prostatic hyperplasia): Code(s): N40.0 - Benign prostatic hyperplasia without lower urinary tract symptoms Status: Chronic Assessment and Plan: Continue with finasteride and Flomax DS: Summary Hospital Course Reason for hospitalization: Tadeo Jean-Baptiste is a 78 year old male WHO HAS END-STAGE RENAL DISEASE AND HAS DIALYSIS ON Friday. The patient went to dialysis today but had been confused and had slurred speech. So therefore he was sent to the emergency room here at [facility]. Patient was here at [facility] last night as well but was sent home. The patient stated that he had his insulin pump off 2 days prior to having surgery. It looks like his surgery was yesterday at [facility]. He had a peritoneal dialysis in the ventral
== END 2019-07-30 15:36 | disposition home or self-care (01) | DRG 637 ==
LOC: ANHED 15:07 → ANH2MED 15:22 → ANHICU 20:20 → ANH3MEDSUR 07-29 13:01
PROVIDERS: Internal Medicine Nephrology; Nurse Practitioner; Admitting Provider Family Medicine; Emergency Provider Emergency Medicine; PCP Internal Medicine; Visit Provider Family Medicine
DX: E11.10 Type 2 diabetes mellitus with ketoacidosis without coma (principal); N18.6 End stage renal disease; I13.2 Hypertensive heart and chronic kidney disease with heart failure and with stage 5 chronic kidney disease, or end stage renal disease; I50.32 Chronic diastolic (congestive) heart failure; I48.20 Chronic atrial fibrillation, unspecified; E11.65 Type 2 diabetes mellitus with hyperglycemia; E11.22 Type 2 diabetes mellitus with diabetic chronic kidney disease; D63.1 Anemia in chronic kidney disease; E87.5 Hyperkalemia; E03.9 Hypothyroidism, unspecified; E78.00 Pure hypercholesterolemia, unspecified; N40.0 Benign prostatic hyperplasia without lower urinary tract symptoms; M19.90 Unspecified osteoarthritis, unspecified site; I25.10 Atherosclerotic heart disease of native coronary artery without angina pectoris; Z99.2 Dependence on renal dialysis; Z79.4 Long term (current) use of insulin; Z86.73 Personal history of transient ischemic attack (TIA), and cerebral infarction without residual deficits; Z98.42 Cataract extraction status, left eye; Z98.41 Cataract extraction status, right eye; Z87.891 Personal history of nicotine dependence; Z79.82 Long term (current) use of aspirin
CPT/HCPCS: 36415; 51701; 74019; 80048; 80053; 80069; 81001; 82010; 82040; 82948; 83036; 83690; 83735; 84100; 84443; 85025; 85027; 86706; 87081; 87340; 96361; 96374; 99284; 99285; A9270; G0257; J1815; J2405; J7030; J7040; Q4081

== ENCOUNTER 2019-10-27 22:55 | Inpatient (IN) | payer MEDICARE, OTHER, SELFPAY ==
--- NOTE | ~2019-10-27 | XR_ITS ---
EXAMINATION: XR chest 1V portable DATE: 10/28/2019 00:06 INDICATION: Weakness TECHNIQUE: frontal view of the chest was obtained. COMPARISON: Chest radiograph dated 04/19/2019 FINDINGS: Interval decrease in now tiny bilateral pleural effusions and mild bibasilar opacities most likely as sociated atelectasis. Additional unchanged mild linear atelectasis/scarring at the lateral right midl raquel zone.. Pulmonary vascular congestion. No pneumothorax. Cardiomegaly. Moderate thoracic spondylosi s. IMPRESSION: 1. Bilateral pleural effusions with mild bibasilar opacities and favor atelectasis over pneumonia. 2. Cardiomegaly with pulmonary vascular congestion but without erica pulmonary edema. Reviewed, dictated and finalized at location A. IMPRESSION: 1. Bilateral pleural effusions with mild bibasilar opacities and favor atelecta sis over pneumonia. 2. Cardiomegaly with pulmonary vascular congestion but without erica pulmonary edema.
[2019-10-27 23:03] VITALS: BP 147/52; PULSE 73; RESP 15; TEMP 35.9; O2SAT 97
--- NOTE | 2019-10-27 23:06 | ECG_ITS ---
Measurements Intervals [place] Rate: 70 P: [place]: 0 QRS: 31 QRSD: 99 T: 50 QT: 408 QTc: 443 Interpretive Statements ATRIAL FIBRILLATION DELAYED PRECORDIAL R/S TRANSITION LOW QRS VOLTAGE IN LIMB LEADS BORDERLINE ST-T WAVE ABNORMALITY- INF/LAT LEADS ABNORMAL ECG Electronically Signed On 10-28-2019 7:02:56 CDT by Ed Hi D.O.
[2019-10-27 23:09] VITALS: PULSE 66
[2019-10-27 23:18] VITALS: BP 126/50; PULSE 68; RESP 14; TEMP 37.2; O2SAT 99
[2019-10-27 23:57] LABS: Basophils Percent Auto 0.3 % (0.2-1.2); Eosinophils Absolute Auto 0.1 K/mm3 (0-0.3); Hematocrit 22.4 % (42.0-52.0); Immature Granulocyte Absolute 0.02 K/mm3 (0.00-0.031); Immature Granulocyte Percent A 0.3 % (0-0.5); Lymphocytes Absolute Auto 0.43 K/mm3 (0.9-3.2); Lymphocytes Percent Auto 6.2 % (18.3-44.2); Mean Corpuscular HGB Conc 30.4 g/dl (32-36); Mean Corpuscular Hemoglobin 30.1 pg (26-34); Mean Corpuscular Volume 99.1 fl (80-100); Mean Platelet Volume 11.5 fl (7.4-10.4); Monocytes Absolute Auto 0.9 K/mm3 (0.1-0.6); Monocytes Percent Auto 13.4 % (2.6-8.5); Neutrophils Absolute Auto 5.4 K/mm3 (1.3-6.7); Neutrophils Percent Auto 77.8 % (45.5-73.1); Platelet Count Result 313 k/mm3 (150-375); Red Blood Count 2.26 M/mm3 (4.6-6.20); Red Cell Distribution Width 17.2 % (11.5-14.5)
[2019-10-28] VITALS (23 sets, daily range): BP systolic 105–136; BP diastolic 32–50; PULSE 55–76; RESP 16–20; TEMP 36.1–37.1; O2SAT 92–100; BMI 29.9
[2019-10-28 00:08] LABS: INR 1.2; Prothrombin Time 14.4 Seconds (11.1-14.7)
[2019-10-28 00:09] LABS: Alanine Aminotransferase 14 U/L (4-50); Albumin Level 3.2 g/dL (3.5-5.1); Alkaline Phosphatase 131 U/L (38-126); Aspartate Amino Transferase 21 U/L (17-59); Bilirubin,Total 0.2 mg/dL (0.2-1.3); Blood Urea Nitrogen 68 mg/dL (9-20); Carbon Dioxide 28 mmol/L (22-30); Chloride 95 mmol/L (98-107); Estimated CRCL calculation 14 ml/min; Estimated Glomerular Filt Rate 13; Glucose 124 mg/dL (75-110); Partial Thromboplastin Time 33.4 SECONDS (22.3-36.8); Potassium 3.8 mmol/L (3.4-5.0); Sodium 135 mmol/L (137-145)
[2019-10-28 00:17] LABS: Hemoglobin 6.8 g/dL (14.0-18.0)
--- NOTE | 2019-10-28 00:29 | ED.GENADULT ---
HPI - General Adult General Chief complaint: Shortness of Breath/Dyspnea Stated complaint: HEMAGLOBIN LOW Time Seen by Provider: 10/27/19 23:07 Source: patient Mode of arrival: EMS Limitations: no limitations History of Present Illness HPI narrative: This patient is a 78yo male with h/o chronic anemia, ESRD on dialysis, DM, hypothyroid who presents from home for evaluation low blood count. Patient states he was called by Dr. Colunga because his hemoglobin was 6. PAtient states he has history of anemia and he requires blood transfusion sometimes. He states he has been more fatigued over the past 1 week. He may be more short of breath with exertion over the past week. He denies epistaxis, melena or blood in stool. Related Data Home Medications Medication Instructions Recorded Confirmed aspirin 81 mg tablet,delayed 81 mg PO DAILY 05/19/19 10/28/19 release atorvastatin 20 mg tablet 20 mg PO DAILY 05/19/19 10/28/19 omega-3 fatty acids 1,000 mg 1,000 mg PO DAILY 05/19/19 10/28/19 capsule insulin lispro 100 unit/mL 1 sliding scale dose SUB-Q 06/24/19 10/28/19 subcutaneous solution USEASDIRECTD ICaps AREDS2 2 cap PO DAILY 07/28/19 10/28/19 furosemide 40 mg tablet 80 mg PO BID tablet 08/19/19 10/28/19 calcium acetate(phosphat bind) 667 mg PO AC 10/28/19 10/28/19 levothyroxine 125 mcg PO DAILY 10/28/19 10/28/19 lisinopril 10 mg PO BID 10/28/19 10/28/19 Allergies Allergy/AdvReac Type Severity Reaction Status Date / Time gabapentin Allergy Severe Weakness Verified 10/27/19 23:10 Review of Systems Review of Systems: All systems reviewed & are unremarkable except as noted in HPI and below Constitutional: Constitutional: Denies chills, Denies fever(s) and Reports weakness ENT: Denies dizziness Cardiovascular: Cardiovascular: Denies chest pain Respiratory: Respiratory: Denies chest congestion, Denies cough and Reports dyspnea (chronic) Gastrointestinal: Gastrointestinal: Denies abdominal pain, Denies hematochezia, Denies nausea and Denies hematemesis Neurologic: Reports weakness PMFSH Past Medical History Medical History A-fib Anemia Of chronic disease Arthritis AV fistula Left upper arm BPH (benign prostatic hyperplasia) Bronchitis CAD (coronary artery disease) Cataracts, bilateral CHF (congestive heart failure) Diastolic Chronic renal failure End-stage renal disease on dialysis Friday CKD (chronic kidney disease) Dialysis patient DM (diabetes mellitus) Essential hypertension Hemochromatosis History of GI bleed History of inguinal hernia History of pneumonia Hypercholesterolemia Hypothyroidism Peritoneal dialysis catheter in place Renal disease Shingles TIA (transient ischemic attack) X2 Type 2 diabetes mellitus without complication, with long-term current use of insulin Wrist fracture, left Social History Social History Social History: 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 His Gretchen is durable power health care attorney for healthcare. He desires to be a full code. He had no biological children and his only step son was killed. He smoked for short period of time while in the . Possibly 3 years. No alcohol Smoking packs per day: 1 Smoking cigarettes per day: 20.0 Years smoked: 4 Smoking pack-years: 4.00 Smoking status: Former smoker Tobacco type: cigarettes Second hand tobacco smoke exposure: Yes Smoking end date: 06/23/1966 Alcohol intake: never Substance use: never Gender identity (if verbalized by the patient): Male Spiritual care concerns: No Agree to blood products: Yes Exam Narrative: Exam Narrative: GENERAL: Well-appearing, well-nourished, and in no acute distress. HEAD: Normocephalic, atraumatic EYES: PERRLA and EOMI, conjunctiva clear without discharge THROAT:Mucous mem
[2019-10-28 02:29] LABS: Hemoglobin 6.2 g/dL (14.0-18.0)
--- NOTE | 2019-10-28 02:51 | ADMGEN ---
This patient, Tadeo Jean-Baptiste, was admitted to Medical Room 250-01. Patient/family oriented to hospital policies and general routines including ID bracelet, bed and alarms, visiting hours, pain management, procedures, bathroom and other care routines, personal items, smoking policy, room service/diet, and visiting hours. Valuables list has been completed. Information on how to activate the Rapid Response Team has been discussed. Patient/Family are encouraged to report perceived risks to care and to ask questions if they do not understand what they are told or what they should do.
[2019-10-28 03:12] LABS: Glucose Point of Care 255 (65-105)
[2019-10-28] MEDS: SODIUM CHLORIDE 0.9% IV 250 ML 30 ML IV CONT (06:25)
[2019-10-28] MEDS: LEVOTHYROXINE SODIUM 125 MCG TABLET PO (07:59)
[2019-10-28] MEDS: ASPIRIN 81 MG ENTERIC TABLET PO (07:59)
[2019-10-28] MEDS: OMEGA 3 POLYUNSAT FATTY ACIDS 1 GM CAP PO (07:59)
[2019-10-28] MEDS: PANTOPRAZOLE SODIUM IV 40 MG VIAL IV PUSH (08:00)
[2019-10-28] MEDS: APIXABAN 2.5 MG TABLET PO (08:00)
[2019-10-28] MEDS: lisinopriL 10 MG TABLET PO (08:00)
[2019-10-28] MEDS: FUROSEMIDE 80 MG TABLET PO ×2 (08:00→21:32)
[2019-10-28] MEDS: CALCIUM ACETATE 667 MG TABLET PO ×2 (08:00→11:42)
[2019-10-28] MEDS: ATORVASTATIN 20 MG TABLET PO (08:00)
[2019-10-28] MEDS: TAMSULOSIN HCL 0.4 MG CAPSULE PO (08:00)
--- NOTE | 2019-10-28 08:06 | PM.CNNEP ---
Assessment and Plan Assessment and plan (1) Anemia: Code(s): D64.9 - Anemia, unspecified Status: Chronic Assessment and Plan: The patient has anemia. He has stools that are guaiac positive as an outpatient. Consider upper GI bleed such as ulcer or gastritis, or lower GI bleed such as diverticulosis polyp etc. Will check iron levels and reticulocyte count to be sure he is on enough EPO and does not need iron. He is getting a transfusion now. Consider GI consultation? (2) Diabetes mellitus with hyperglycemia, with long-term current use of insulin: Qualifiers: Diabetes mellitus type: type 2 Qualified Code(s): E11.65 - Type 2 diabetes mellitus with hyperglycemia; Z79.4 - FCI (current) use of insulin Code(s): E11.65 - Type 2 diabetes mellitus with hyperglycemia; Z79.4 - FCI (current) use of insulin Status: Chronic Assessment and Plan: He is on Accu-Cheks and sliding-scale insulin. (3) DM (diabetes mellitus): Code(s): E11.9 - Type 2 diabetes mellitus without complications Status: Acute Assessment and Plan: He is on Accu-Cheks and sliding-scale insulin. (4) A-fib: Code(s): I48.91 - Unspecified atrial fibrillation Status: Chronic Assessment and Plan: His heart rate is under good control. (5) CHF (congestive heart failure): Code(s): I50.9 - Heart failure, unspecified Status: Chronic Assessment and Plan: He has no swelling but he does have pleural effusions. Will try to take a little fluid off. (6) End stage renal disease on dialysis: Code(s): N18.6 - End stage renal disease; Z99.2 - Dependence on renal dialysis Status: Acute Assessment and Plan: The patient has end-stage renal disease on peritoneal dialysis. He will continue peritoneal dialysis here. Volume status looks okay. His potassium is in good shape. History of Present Illness Reason for Consult Consult date: 10/28/19 Chief Complaint Chief complaint: Anemia, ESRD on peritoneal dialysis History of Present Illness Narrative: Tadeo is a very pleasant 78-year-old gentleman who has multiple medical problems including end-stage renal disease on peritoneal dialysis, diabetes, hypertension, atrial fibrillation, hyperlipidemia, congestive heart failure, hypothyroidism, BPH. The patient is on peritoneal dialysis. He has been doing well with this. Flows have been good in fluid has been clear. There are no machine alarms. He has not had any problems with fluid buildup. He is eating and drinking well he says. The patient has had significant anemia. A few days ago the patient had stool guaiacs and they were positive so he made a consultation with a graduate research assistant which is going to happen in about a week. He had some blood drawn earlier this week and last night the blood work came back showing that his hemoglobin was below 7. Because of the severity of the anemia Dr. Colunga asked him to come to the emergency room. The patient does have a little more shortness of breath than usual although he is chronically short of breath. He has not had any chest pain. He has been generally weak but this is nothing new for him. He denies any bloody or black stools. He does not have any belly pain nausea or vomiting. He has been eating well. He does not smoke or drink. He lives at home. Review of Systems Constitutional: Constitutional: Reports no additional constitutional complaints Eyes: Eyes: Reports no additional eye complaints ENT: Reports system reviewed and no additional complaints, except as documented Cardiovascular: Cardiovascular: Reports no additional cardiovascular complaints Respiratory: Respiratory: Reports no additional respiratory complaints Gastrointestinal: Gastrointestinal: Reports no additional gastrointestinal complaints Genitourinary: Genitourinary: Reports no additional male genitourinary complaints Musculo
--- NOTE | 2019-10-28 08:22 | PM.EVENT ---
Event Note Event Note Event Note: The patient is on peritoneal dialysis. Doing well. He was seen at 6:15 a.m.
[2019-10-28 09:00] LABS: Hemoglobin 6.8 g/dL (14.0-18.0)
--- NOTE | 2019-10-28 09:44 | PM.IMHP ---
H&P: HPI History of Present Illness Chief complaint: Low hemoglobin on outpatient labs Narrative: 10/28/19 0915 The supervising physician for this history and physical is Dr Aysha Hobbs. Mr. Jean-Baptiste is a 78yo M with end-stage renal disease on peritoneal dialysis, atrial fibrillation, type 2 diabetes mellitus on insulin pump, anemia of chronic disease, hypertension who presented to the ED at the instruction of Dr. Colunga due to a low Hgb on outpatient labs. Patient reports he feels well. He does note chronic shortness of breath with activity which seemed a little worse in the last week. He denies any chest pain, cough, or sick contacts. He describes his BMs have looked mushy , light brown over the last 1 month but denies noticing any erica blood or black stool. He reports feeling a bit more weak lately and describes some mild lightheadedness but no falls. He reports his peritoneal dialysis has been going well without any issues. Notes his insulin pump has been working fine without issues and tells me his blood sugars are sometimes in 200s but his goal glucose level is between 70 and 160. He tells me Davion had conducted an at-home test that detected blood in his stool this week, and that he has an upcoming appointment to see Dr Randhawa in the office in 1 or 2 weeks regarding this. His last colonoscopy with Dr Randhawa was Feb 2017 for evaluation of anemia which revealed a polyp and nonbleeding internal hemorrhoid, EGD also at that time was unremarkable. Hgb was as low as 6.2 early this morning requiring transfusion and he is currently receiving 2nd unit of packed RBC at time of my encounter. He is being admitted for acute on chronic anemia. Review of Systems Review of Systems: Narrative: Twelve systems were reviewed with pertinent positives and negatives as per HPI. Except as documented, all other systems were reviewed and are negative. [facility] Past Medical History Medical History A-fib Persistent atrial fibrillation; Follows with Dr Mantilla last seen 08/25/19 Anemia Of chronic disease Arthritis AV fistula Left upper arm BPH (benign prostatic hyperplasia) Bronchitis CAD (coronary artery disease) Cataracts, bilateral CHF (congestive heart failure) Diastolic. Last echo 04/21/19 shows normal LV systolic function EF 60-65%, mild tricuspid and mitral regurgitation End stage renal disease on dialysis On peritoneal dialysis and follows with Dr Colunga. PD dialysis catheter placed Jul 2019. Essential hypertension Hemochromatosis History of GI bleed History of inguinal hernia Hypercholesterolemia Hypothyroidism Peritoneal dialysis catheter in place Shingles TIA (transient ischemic attack) X2 Type 2 diabetes mellitus without complication, with long-term current use of insulin Wrist fracture, left Surgical History Surgical History H/O left wrist surgery Pin H/O vascular surgery Mar 2019 balloon stenting to left upper extremity AV fistula History of inguinal hernia repair Ventral hernia repair yesterday Jul 2019 at same time as PD catheter placement Hx of bilateral cataract extraction Family History Family History Mother Cerebrovascular accident Family history of heart disease in male family member before age 55 Father Hypertension Family history of coronary artery disease Malignant neoplasm of prostate Social History Social History Social History: Mr. 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 He denies alcohol, tobacco, or other substance use. He smoked cigarettes for a brief period of time while in the in the 1960s, none since that time. He designates his , Gretchen, to be his surrogate decision maker and wishes to be full code status. [facility]
[2019-10-28 10:11] LABS: IFOB Positive Control Positive; Immunochemical Fecal Occult Bl Positive (N)
--- NOTE | 2019-10-28 12:23 | WPDGICN ---
Assessment and Plan Assessment and plan (1) End stage renal disease on dialysis: Code(s): N18.6 - End stage renal disease; Z99.2 - Dependence on renal dialysis Status: Acute (2) A-fib: Qualifiers: Atrial fibrillation type: unspecified persistent Qualified Code(s): I48.19 - Other persistent atrial fibrillation Code(s): I48.91 - Unspecified atrial fibrillation Status: Chronic (3) Anemia: Qualifiers: Anemia type: due to chronic kidney disease Chronic kidney disease stage: on chronic dialysis Qualified Code(s): N18.6 - End stage renal disease; D63.1 - Anemia in chronic kidney disease; Z99.2 - Dependence on renal dialysis Code(s): D64.9 - Anemia, unspecified Status: Acute Assessment and Plan: Patient has chronic anemia now with the significant decline in hemoglobin over the last several months from hemoglobin of approximately 10 and to hemoglobin of approximately 6-1/2. Now with occult blood in stool. Plan is for repeat GI endoscopy. Patient with a history of hemochromatosis initially had blood donation to decrease his hemoglobin but this has been declining even without blood donation for several years now. 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 GI Consult Note Consult date/time: 10/28/19 12:23 HPI: Tadeo Jean-Baptiste is a 78 year old male seen in evaluation at the request of hospitalist service. I am asked to see because of patient's progressive decline in hemoglobin. Found to have occult blood in stool today. This patient has a long history of hemochromatosis. Followed by Dr. duran [facility] in the past. Many years ago had blood drawn off to decrease his hemoglobin. Over recent years he has had anemia in is not required donation of blood in fact his hemoglobin became quite low. Colonoscopy an EGD were performed in 2017 a colon polyp was identified he had hemorrhoids. EGD was unremarkable. His hemoglobin has continued to decline. He is also on atrial fibrillation chronic Eliquis anticoagulation. As an outpatient is baseline hemoglobin 10 has fallen to approximately 6.8 prompting admission to the hospital. Patient denies any obvious GI blood loss. Denies any bleeding elsewhere. He denies any bruises. He denies any nose bleeds. Patient denies abdominal pain PMFSH Past Medical History Medical History A-fib Persistent atrial fibrillation; Follows with Dr Mantilla last seen 08/25/19 Anemia Of chronic disease Arthritis AV fistula Left upper arm BPH (benign prostatic hyperplasia) Bronchitis CAD (coronary artery disease) Cataracts, bilateral CHF (congestive heart failure) Diastolic. Last echo 04/21/19 shows normal LV systolic function EF 60-65%, mild tricuspid and mitral regurgitation End stage renal disease on dialysis On peritoneal dialysis and follows with Dr Colunga. PD dialysis catheter placed Jul 2019. Essential hypertension Hemochromatosis History of GI bleed History of inguinal hernia Hypercholesterolemia Hypothyroidism Peritoneal dialysis catheter in place Shingles TIA (transient ischemic attack) X2 Type 2 diabetes mellitus without complication, with long-term current use of insulin Wrist fracture, left Surgical History Surgical History H/O left wrist surgery Pin H/O vascular
[2019-10-28 13:52] LABS: Hemoglobin 7.3 g/dL (14.0-18.0)
[2019-10-28] MEDS: PEG (High)/E-LYTE SOLN 4,000 ML BTL 4000 ML PO (14:00)
[2019-10-28 20:11] LABS: Hematocrit 24.8 % (42.0-52.0); Hemoglobin 7.9 g/dL (14.0-18.0)
[2019-10-28] MEDS: FINASTERIDE 5 MG TABLET PO (21:32)
[2019-10-29] VITALS (13 sets, daily range): BP systolic 85–147; BP diastolic 35–54; PULSE 56–73; RESP 16–20; TEMP 36.1–37.1; O2SAT 94–100
[2019-10-29 04:56] LABS: Basophils Percent Auto 0.3 % (0.2-1.2); Eosinophils Absolute Auto 0.1 K/mm3 (0-0.3); Eosinophils Percent Auto 1.6 % (0-4.4); Hematocrit 25.3 % (42.0-52.0); Hemoglobin 8.1 g/dL (14.0-18.0); Immature Granulocyte Absolute 0.02 K/mm3 (0.00-0.031); Immature Granulocyte Percent A 0.3 % (0-0.5); Lymphocytes Absolute Auto 0.38 K/mm3 (0.9-3.2); Lymphocytes Percent Auto 6.1 % (18.3-44.2); Mean Corpuscular Hemoglobin 29.3 pg (26-34); Mean Corpuscular Volume 91.7 fl (80-100); Mean Platelet Volume 11.2 fl (7.4-10.4); Monocytes Absolute Auto 0.7 K/mm3 (0.1-0.6); Monocytes Percent Auto 11.6 % (2.6-8.5); Neutrophils Percent Auto 80.1 % (45.5-73.1); Platelet Count Result 242 k/mm3 (150-375); Red Blood Count 2.76 M/mm3 (4.6-6.20); Red Cell Distribution Width 17.7 % (11.5-14.5); White Blood Count 6.2 K/mm3 (4.5-10.0)
[2019-10-29 05:08] LABS: Hemoglobin A1C 7.1 % (<5.7)
[2019-10-29 05:17] LABS: Albumin Level 2.8 g/dL (3.5-5.1); Blood Urea Nitrogen 71 mg/dL (9-20); Calcium 7.6 mg/dL (8.4-10.2); Carbon Dioxide 25 mmol/L (22-30); Chloride 94 mmol/L (98-107); Estimated CRCL calculation 15 ml/min; Estimated Glomerular Filt Rate 13; Glucose 319 mg/dL (75-110); Phosphorus 5.8 mg/dL (2.5-4.5); Potassium 4.2 mmol/L (3.4-5.0); Sodium 129 mmol/L (137-145)
[2019-10-29 05:52] LABS: Hepatitis B Surface Antigen Negative (Negative)
[2019-10-29] MEDS: LEVOTHYROXINE SODIUM 125 MCG TABLET PO (05:56)
[2019-10-29 06:09] LABS: Hepatitis B Surface Anti Res Negative
[2019-10-29] MEDS: INSULIN ASPART (*BKC) 100 UNITS/ML 15 UNITS SUB-Q (08:31)
[2019-10-29] MEDS: PANTOPRAZOLE SODIUM IV 40 MG VIAL IV PUSH (08:31)
[2019-10-29 08:46] LABS: Glucose Point of Care > 500 (65-105)
--- NOTE | 2019-10-29 10:07 | PM.IMPN ---
Progress Note: A&P Assessment and Plan (1) Anemia: Qualifiers: Anemia type: due to chronic kidney disease Chronic kidney disease stage: on chronic dialysis Qualified Code(s): N18.6 - End stage renal disease; D63.1 - Anemia in chronic kidney disease; Z99.2 - Dependence on renal dialysis Code(s): D64.9 - Anemia, unspecified Status: Acute Assessment and Plan: Acute on chronic. Patient known to have anemia of chronic kidney disease, presents with Hgb 6.2 and positive stool occult blood. Hgb was 10.4 in Jul 2019. Had GI evaluation of anemia in 2016 which was unremarkable. He describes he had positive stool occult testing this week and was scheduled to see Dr Randhawa in the upcoming weeks. He has not noticed hematochezia or melena at home. Hgb 8.0 this AM; received 2 units packed RBC yesterday 10/27. Monitor H&H and transfuse PRN. Appreciate GI consultation from Dr Randhawa - going for upper and lower endoscopy this afternoon. (2) End stage renal disease on dialysis: Code(s): N18.6 - End stage renal disease; Z99.2 - Dependence on renal dialysis Status: Acute Assessment and Plan: Now on peritoneal dialysis. Nephrology recommendations appreciated. (3) Type 2 diabetes mellitus without complication, with long-term current use of insulin: Code(s): E11.9 - Type 2 diabetes mellitus without complications; Z79.4 - intermediate (current) use of insulin Status: Chronic Assessment and Plan: Was maintained on his home insulin pump yesterday and unfortunately he took it off at some point last evening. Blood sugar 519 this AM. Give Novolog now and recheck. Plan to leave insulin pump off and continue with basal-bolus insulin plus sliding scale coverage here. Improved to 250s this afternoon. (4) Essential hypertension: Code(s): I10 - Essential (primary) hypertension Status: Acute Assessment and Plan: BP stable, continue home lisinopril. Monitor BP and adjust treatment as needed. (5) CHF (congestive heart failure): Qualifiers: Heart failure chronicity: chronic Heart failure type: diastolic Qualified Code(s): I50.32 - Chronic diastolic (congestive) heart failure Code(s): I50.9 - Heart failure, unspecified Status: Chronic Assessment and Plan: Chronic diastolic CHF. Continue home medications. Appears well-compensated. (6) A-fib: Qualifiers: Atrial fibrillation type: unspecified persistent Qualified Code(s): I48.19 - Other persistent atrial fibrillation Code(s): I48.91 - Unspecified atrial fibrillation Status: Chronic Assessment and Plan: Rate controlled at present. On long-term anticoagulation with Eliquis which is on hold now in light of his profound anemia and possible GI bleeding. (7) Hypothyroidism: Qualifiers: Hypothyroidism type: acquired Qualified Code(s): E03.9 - Hypothyroidism, unspecified Code(s): E03.9 - Hypothyroidism, unspecified Status: Chronic Assessment and Plan: Continue home synthroid. Subjective Date/time seen: 10/29/19 0930 Interval history: Mr. Jean-Baptiste is a 78yo M with ESRD on peritoneal dialysis admitted for acute on chronic anemia. He is a bit sleepy this morning but tells me he feels well other than some nasal congestion, tells me his nose is dry. He denies chest pain or shortness of breath. He denies nausea, vomiting, or abdominal pain. Notified by nursing that at some point last night, he took his insulin pump off and blood sugar is 519 this AM. Review of Systems Review of Systems: Narrative: Twelve systems were reviewed with pertinent positives and negatives as per HPI. Exam Narrative: Exam Narrative: General: Male resting comfortably in be
[2019-10-29 10:21] LABS: Glucose Point of Care 477 (65-105)
--- NOTE | 2019-10-29 10:25 | PC.NURSE ---
Med Campoverde RN to floor to check on patient's peritoneal dialysis. Per community center director patient has about two hours left of PD. Call to DEEP Andres in GI lab to notify her. Per DEEP Andres she will call Dr. Wiley.
[2019-10-29 11:06] LABS: Glucose Point of Care 481 (65-105)
[2019-10-29] MEDS: INSULIN ASPART (*BKC) 100 UNITS/ML 18 UNITS SUB-Q (11:13)
--- NOTE | 2019-10-29 12:34 | PC.NURSE ---
To GI Lab per jossy, IV saline locked.
--- NOTE | 2019-10-29 12:41 | WPDANESEPP ---
Anes - Eval Pre Procedure Procedure: Operation Date: 10/29/19 11:30 Proposed Procedures p Esophagogastroduodenoscopy & Colonoscopy - Wilton Randhawa MD Date/Time: 10/29/19 12:41 Pre Op Diagnosis: Low hemoglobin on outpatient labs Patient Data Age: 78 Gender: M Height: 5 ft 9 in Weight: 97.2 kg Last Vital Signs Temp 37.1 C 10/29/19 06:00 Pulse 70 10/29/19 08:00 Resp 20 10/29/19 06:00 BP 142/46 H 10/29/19 06:00 Pulse Ox 94 10/29/19 06:00 Allergies Allergy/AdvReac Type Severity Reaction Status Date / Time gabapentin Allergy Severe Weakness Verified 10/27/19 23:10 Home Medications Medication Instructions Recorded Confirmed Type aspirin 81 mg tablet,delayed 81 mg PO DAILY 05/19/19 10/28/19 History release atorvastatin 20 mg tablet 20 mg PO DAILY 05/19/19 10/28/19 History omega-3 fatty acids 1,000 mg 1,000 mg PO DAILY 05/19/19 10/28/19 History capsule insulin lispro 100 unit/mL 1 sliding scale dose SUB-Q 06/24/19 10/28/19 History subcutaneous solution USEASDIRECTD ICaps AREDS2 2 cap PO DAILY 07/28/19 10/28/19 History apixaban 2.5 mg tablet 2.5 mg PO BID #180 tablet 08/02/19 10/28/19 Rx furosemide 40 mg tablet 80 mg PO BID tablet 08/19/19 10/28/19 History finasteride 5 mg tablet 5 mg PO QACDINNER #90 tablet 09/01/19 10/28/19 Rx tamsulosin 0.4 mg capsule 0.4 mg PO DAILY #90 cap 09/01/19 10/28/19 Rx calcium acetate(phosphat bind) 667 mg PO AC 10/28/19 10/28/19 History levothyroxine 125 mcg PO DAILY 10/28/19 10/28/19 History lisinopril 10 mg PO BID 10/28/19 10/28/19 History Laboratory Tests 10/28/19 10/28/19 10/29/19 13:27 20:00 04:33 WBC 6.2 K/mm3 K/mm3 (4.5-10.0) RBC 2.76 M/mm3 L M/mm3 (4.6-6.20) Hgb 7.3 g/dL L g/dL 7.9 g/dL L g/dL 8.1 g/dL L g/dL (14.0-18.0) (14.0-18.0) (14.0-18.0) Hct 23.0 % L % 24.8 % L % 25.3 % L % (42.0-52.0) (42.0-52.0) (42.0-52.0) MCV 91.7 fl D fl (80-100) MCH 29.3 pg pg (26-34) MCHC 32.0 g/dl g/dl (32-36) RDW 17.7 % H % (11.5-14.5) Plt Count 242 k/mm3 k/mm3 (150-375) MPV 11.2 fl H fl (7.4-10.4) Immature Gran % (Auto) 0.3 % % (0-0.5) Neut % (Auto) 80.1 % H % (45.5-73.1) Lymph % (Auto) 6.1 % L % (18.3-44.2) [place] % (Auto) 11.6 % H % (2.6-8.5) Eos % (Auto) 1.6 % % (0-4.4) Baso % (Auto) 0.3 % % (0.2-1.2) Lymph # (Auto) 0.38 K/mm3 L K/mm3 (0.9-3.2) [place] # (Auto) 0.7 K/mm3 H K/mm3 (0.1-0.6) Eos # (Auto) 0.1 K/mm3 K/mm3 (0-0.3) Baso # (Auto) 0.0 K/mm3 K/mm3 (0.0-0.1) Abs Immat Gran (auto) 0.02 K/mm3 K/mm3 (0.00-0.031) Absolute Neuts (auto) 5.0 K/mm3 K/mm3 (1.3-6.7) Absolute Nucleated RBC 0.0 K/mm3 K/mm3 (0.0-0.012) Nucleated RBC % 0.0 % % (0.0-0.2) Sodium Potassium Chloride Carbon Dioxide BUN Creatinine Estim Creat Clear Calc Estimated GFR Glucose POC Capillary Glucose Hemoglobin A1c Calcium Phosphorus Albumin Hep Bs Antigen Hep Bs Antibody 10/29/19 10/29/19 10/29/19 04:33 04:33 04:33 WBC RBC Hgb Hct MCV MCH MCHC RDW Plt Count MPV Immature Gran % (Auto) Neut % (Auto) Lymph % (Auto) [place] % (Auto) Eos % (Auto) Baso % (Auto) Lymph # (Auto) Charlton # (Auto) Eos # (Auto) Baso # (Auto) Abs Immat Gran (auto) Absolute Neuts (auto) Absolute Nucleated RBC Nucleated RBC % Sodium 129 mmol/L L mmol/L
[2019-10-29 12:47] LABS: Glucose Point of Care 385 (65-105)
--- NOTE | 2019-10-29 12:48 | P.PNAN_ITS ---
Anes - Initial Pre Proc Eval Procedure: Operation Date: 10/29/19 11:30 Proposed Procedures p Esophagogastroduodenoscopy & Colonoscopy - Wilton Randhawa MD Date/Time: 10/29/19 12:48 Surgeon: ELIJAH Vigil Pre Op Diagnosis: Low hemoglobin on outpatient labs Patient Data Age: 78 Gender: M Height: 5 ft 9 in Weight: 97.2 kg Last Vital Signs Temp 37.1 C 10/29/19 06:00 Pulse 70 10/29/19 08:00 Resp 20 10/29/19 06:00 BP 142/46 H 10/29/19 06:00 Pulse Ox 94 10/29/19 06:00 Allergies Allergy/AdvReac Type Severity Reaction Status Date / Time gabapentin Allergy Severe Weakness Verified 10/27/19 23:10 Home Medications Medication Instructions Recorded Confirmed Type aspirin 81 mg tablet,delayed 81 mg PO DAILY 05/19/19 10/28/19 History release atorvastatin 20 mg tablet 20 mg PO DAILY 05/19/19 10/28/19 History omega-3 fatty acids 1,000 mg 1,000 mg PO DAILY 05/19/19 10/28/19 History capsule insulin lispro 100 unit/mL 1 sliding scale dose SUB-Q 06/24/19 10/28/19 History subcutaneous solution USEASDIRECTD ICaps AREDS2 2 cap PO DAILY 07/28/19 10/28/19 History apixaban 2.5 mg tablet 2.5 mg PO BID #180 tablet 08/02/19 10/28/19 Rx furosemide 40 mg tablet 80 mg PO BID tablet 08/19/19 10/28/19 History finasteride 5 mg tablet 5 mg PO QACDINNER #90 tablet 09/01/19 10/28/19 Rx tamsulosin 0.4 mg capsule 0.4 mg PO DAILY #90 cap 09/01/19 10/28/19 Rx calcium acetate(phosphat bind) 667 mg PO AC 10/28/19 10/28/19 History levothyroxine 125 mcg PO DAILY 10/28/19 10/28/19 History lisinopril 10 mg PO BID 10/28/19 10/28/19 History Laboratory Tests 10/28/19 10/28/19 10/29/19 13:27 20:00 04:33 WBC 6.2 K/mm3 K/mm3 (4.5-10.0) RBC 2.76 M/mm3 L M/mm3 (4.6-6.20) Hgb 7.3 g/dL L g/dL 7.9 g/dL L g/dL 8.1 g/dL L g/dL (14.0-18.0) (14.0-18.0) (14.0-18.0) Hct 23.0 % L % 24.8 % L % 25.3 % L % (42.0-52.0) (42.0-52.0) (42.0-52.0) MCV 91.7 fl D fl (80-100) MCH 29.3 pg pg (26-34) MCHC 32.0 g/dl g/dl (32-36) RDW 17.7 % H % (11.5-14.5) Plt Count 242 k/mm3 k/mm3 (150-375) MPV 11.2 fl H fl (7.4-10.4) Immature Gran % (Auto) 0.3 % % (0-0.5) Neut % (Auto) 80.1 % H % (45.5-73.1) Lymph % (Auto) 6.1 % L % (18.3-44.2) [place] % (Auto) 11.6 % H % (2.6-8.5) Eos % (Auto) 1.6 % % (0-4.4) Baso % (Auto) 0.3 % % (0.2-1.2) Lymph # (Auto) 0.38 K/mm3 L K/mm3 (0.9-3.2) [place] # (Auto) 0.7 K/mm3 H K/mm3 (0.1-0.6) Eos # (Auto) 0.1 K/mm3 K/mm3 (0-0.3) Baso # (Auto) 0.0 K/mm3 K/mm3 (0.0-0.1) Abs Immat Gran (auto) 0.02 K/mm3 K/mm3 (0.00-0.031) Absolute Neuts (auto) 5.0 K/mm3 K/mm3 (1.3-6.7) Absolute Nucleated RBC 0.0 K/mm3 K/mm3 (0.0-0.012) Nucleated RBC %
[2019-10-29] MEDS: SODIUM CHLORIDE 0.9% IV 500 ML 10 ML IV CONT (12:55)
[2019-10-29] MEDS: SIMETHICONE ORAL SUSPENSION 20 MG/0.3 ML 30 ML BOTTLE 0.6 ML PO (13:29)
[2019-10-29 14:29] LABS: Glucose Point of Care 332 (65-105)
[2019-10-29] MEDS: FUROSEMIDE 80 MG TABLET PO ×2 (14:31→17:46)
[2019-10-29] MEDS: CALCIUM ACETATE 667 MG TABLET PO ×2 (14:31→17:46)
[2019-10-29] MEDS: lisinopriL 10 MG TABLET PO (14:31)
[2019-10-29] MEDS: OMEGA 3 POLYUNSAT FATTY ACIDS 1 GM CAP PO (14:31)
[2019-10-29] MEDS: ASPIRIN 81 MG ENTERIC TABLET PO (14:31)
[2019-10-29] MEDS: TAMSULOSIN HCL 0.4 MG CAPSULE PO (14:31)
[2019-10-29] MEDS: ATORVASTATIN 20 MG TABLET PO (14:31)
[2019-10-29] MEDS: INSULIN ASPART (*BKC) 100 UNITS/ML SUB-Q ×2 (14:50→23:55)
[2019-10-29 14:54] LABS: Glucose Point of Care 259 (65-105)
--- NOTE | 2019-10-29 15:53 | PM.PNNEP ---
Progress Note: A&P Assessment and Plan (1) Anemia: Qualifiers: Anemia type: due to chronic kidney disease Chronic kidney disease stage: on chronic dialysis Qualified Code(s): N18.6 - End stage renal disease; D63.1 - Anemia in chronic kidney disease; Z99.2 - Dependence on renal dialysis Code(s): D64.9 - Anemia, unspecified Status: Acute Assessment and Plan: The patient has anemia. He has stools that are guaiac positive as an outpatient. Colonoscopy done which showed internal hemorrhoids with stigmata of bleeding. EGD was normal Will check a reticulocyte count and iron levels. We will make sure he is on not Epogen. His hemoglobin is 8.5. (2) Diabetes mellitus with hyperglycemia, with long-term current use of insulin: Qualifiers: Diabetes mellitus type: type 2 Qualified Code(s): E11.65 - Type 2 diabetes mellitus with hyperglycemia; Z79.4 - assisted (current) use of insulin Code(s): E11.65 - Type 2 diabetes mellitus with hyperglycemia; Z79.4 - assisted (current) use of insulin Status: Inactive Assessment and Plan: He is on Accu-Cheks and sliding-scale insulin. (3) DM (diabetes mellitus): Code(s): E11.9 - Type 2 diabetes mellitus without complications Status: Inactive Assessment and Plan: He is on Accu-Cheks and sliding-scale insulin. (4) A-fib: Qualifiers: Atrial fibrillation type: unspecified persistent Qualified Code(s): I48.19 - Other persistent atrial fibrillation Code(s): I48.91 - Unspecified atrial fibrillation Status: Chronic Assessment and Plan: His heart rate is under good control. (5) CHF (congestive heart failure): Qualifiers: Heart failure type: diastolic Heart failure chronicity: chronic Qualified Code(s): I50.32 - Chronic diastolic (congestive) heart failure Code(s): I50.9 - Heart failure, unspecified Status: Chronic Assessment and Plan: He has no swelling but he does have pleural effusions. He is comfortable breathing on room air. (6) End stage renal disease on dialysis: Code(s): N18.6 - End stage renal disease; Z99.2 - Dependence on renal dialysis Status: Acute Assessment and Plan: The patient has end-stage renal disease on peritoneal dialysis. Will continue with current regimen Subjective Date/time seen: 10/29/19 15:53 Interval history: Tadeo is feeling about the same. No chest pain or shortness of Breath No visible blood in the stool Review of Systems Cardiovascular: Cardiovascular: Reports no additional cardiovascular complaints Respiratory: Respiratory: Reports no additional respiratory complaints Gastrointestinal: Gastrointestinal: Reports no additional gastrointestinal complaints Genitourinary: Genitourinary: Reports no additional male genitourinary complaints Exam Narrative: Exam Narrative: WDWN in NAD skin no rash head ncat lungs clear cor reg no rub abd BS+ nontender and soft ext no edema. Objective Data Vital Signs Vital Signs: Vital Signs - 24 hr 10/28/19 16:00 10/28/19 20:00 10/28/19 22:00 Temperature 36.3 C L Pulse Rate 55 L 57 L 59 L Respiratory Rate 20 Blood Pressure 112/45 L Pulse Oximetry 100 10/29/19 00:00 10/29/19 04:00 10/29/19 06:00 Temperature 37.1 C Pulse Rate 63 73 71 Respiratory Rate 20 Blood Pressure 142/46 H Pulse Oximetry 94 10/29/19 08:00 10/29/19 12:00 10/29/19 12:52 Temperature 36.8 C Pulse Rate 70 59 L 58 L Respiratory Rate 16 Blood Pressure 147/54 H Pulse Oximetry 97 10/29/19 13:40 10/29/19 13:50 10/29/19 14:00 Temperature 36.3 C L Pulse Rate 58 L 60 66 Respiratory Rate 19 19 18 Blood Pressure 85/35 L 87/35 L 131/46 L Pulse Oximetry 96 99 100 10/29/19 14:03 Temperature Pulse Rate 58 L Respiratory Rate 16 Blood Pressure 120/49 L Pulse Oximetry 98 Intake/Output Intake/Output: Intake & Output
[2019-10-29] MEDS: FINASTERIDE 5 MG TABLET PO (17:46)
--- NOTE | 2019-10-29 17:57 | PC.NURSE ---
Call to pharmacy for epogen to be sent to floor for administration.
[2019-10-29] MEDS: INSULIN ASPART (*BKC) 100 UNITS/ML 8 UNITS SUB-Q (18:01)
[2019-10-29] MEDS: EPOETIN ALFA 10,000 UNITS/ML VIAL 10000 UNITS SUB-Q (18:03)
[2019-10-29 19:00] LABS: Glucose Point of Care 190 (65-105)
[2019-10-29] MEDS: INSULIN GLARGINE (*BKC) 100 UNITS/ML 22 UNITS SUB-Q (21:09)
[2019-10-29 21:17] LABS: Glucose Point of Care 129 (65-105)
[2019-10-29 21:52] LABS: Immature Reticulocyte Fraction 25.7 % (3.0-15.9); Reticulocyte Hemoglobin Conten 25.4 pg (28.2-35.7); Reticulocyte Percent 3.72 % (0.7-4.3)
[2019-10-29 22:27] LABS: Iron 27 ug/dL (49-181)
[2019-10-29 22:36] LABS: Percent Iron Saturation 10 % (20-50)
[2019-10-29 23:54] LABS: Glucose Point of Care 206 (65-105)
[2019-10-30] VITALS (7 sets, daily range): BP systolic 121–124; BP diastolic 40–42; PULSE 62–66; RESP 14–16; TEMP 36.6; O2SAT 92
[2019-10-30 02:50] LABS: Glucose Point of Care 171 (65-105)
[2019-10-30 05:35] LABS: Basophils Percent Auto 0.4 % (0.2-1.2); Eosinophils Absolute Auto 0.2 K/mm3 (0-0.3); Eosinophils Percent Auto 2.6 % (0-4.4); Hematocrit 23.6 % (42.0-52.0); Hemoglobin 7.6 g/dL (14.0-18.0); Immature Granulocyte Absolute 0.02 K/mm3 (0.00-0.031); Immature Granulocyte Percent A 0.3 % (0-0.5); Lymphocytes Absolute Auto 0.47 K/mm3 (0.9-3.2); Lymphocytes Percent Auto 6.5 % (18.3-44.2); Mean Corpuscular HGB Conc 32.2 g/dl (32-36); Mean Corpuscular Hemoglobin 29.7 pg (26-34); Mean Corpuscular Volume 92.2 fl (80-100); Mean Platelet Volume 11.3 fl (7.4-10.4); Monocytes Percent Auto 13.1 % (2.6-8.5); Neutrophils Absolute Auto 5.6 K/mm3 (1.3-6.7); Neutrophils Percent Auto 77.1 % (45.5-73.1); Platelet Count Result 268 k/mm3 (150-375); Red Blood Count 2.56 M/mm3 (4.6-6.20); Red Cell Distribution Width 17.4 % (11.5-14.5); White Blood Count 7.3 K/mm3 (4.5-10.0)
[2019-10-30 05:45] LABS: Albumin Level 2.6 g/dL (3.5-5.1); Blood Urea Nitrogen 60 mg/dL (9-20); Calcium 7.8 mg/dL (8.4-10.2); Carbon Dioxide 25 mmol/L (22-30); Chloride 97 mmol/L (98-107); Estimated CRCL calculation 15 ml/min; Estimated Glomerular Filt Rate 12; Glucose 158 mg/dL (75-110); Magnesium 1.9 mg/dL (1.6-2.3); Phosphorus 5.3 mg/dL (2.5-4.5); Potassium 3.6 mmol/L (3.4-5.0); Sodium 132 mmol/L (137-145)
[2019-10-30] MEDS: LEVOTHYROXINE SODIUM 125 MCG TABLET PO (06:41)
[2019-10-30 06:44] LABS: Glucose Point of Care 161 (65-105)
[2019-10-30 07:42] LABS: Glucose Point of Care 139 (65-105)
[2019-10-30] MEDS: OMEGA 3 POLYUNSAT FATTY ACIDS 1 GM CAP PO (09:12)
[2019-10-30] MEDS: PANTOPRAZOLE SODIUM IV 40 MG VIAL IV PUSH (09:12)
[2019-10-30] MEDS: ATORVASTATIN 20 MG TABLET PO (09:12)
[2019-10-30] MEDS: CALCIUM ACETATE 667 MG TABLET PO ×2 (09:12→11:44)
[2019-10-30] MEDS: APIXABAN 2.5 MG TABLET PO (09:13)
[2019-10-30] MEDS: FUROSEMIDE 80 MG TABLET PO (09:13)
[2019-10-30] MEDS: lisinopriL 10 MG TABLET PO (09:13)
[2019-10-30] MEDS: TAMSULOSIN HCL 0.4 MG CAPSULE PO (09:13)
[2019-10-30] MEDS: SALINE 0.65% NAS SOLN 44 ML BTL 1 SPRAY NASAL (09:14)
--- NOTE | 2019-10-30 09:15 | WPDGIPROGNO ---
Progress Note: A&P Additional Plan Patient alert and comfortable this morning. No obvious signs of GI blood loss. He denies abdominal pain. No visible bleeding. Physical exam reveals him to be alert. He is anicteric. Lungs are clear. Heart without murmur. Abdomen is soft and nontender. Impression 1. Progressive anemia. Etiology unclear. No obvious signs for GI blood loss. Colonoscopy an EGD unremarkable. Internal hemorrhoids may account for occult blood in stool. Cannot definitively exclude small bowel bleeding. Consider small bowel capsule endoscopy as an outpatient to complete GI workup. 2. Internal hemorrhoids. Appear to account for occult blood in stool. As stated above cannot definitively exclude small-bowel bleeding and capsule study may be of some benefit after discharge. 3. End-stage renal disease. Patient on peritoneal dialysis. Anemia likely contributes for baseline anemia. 4. Atrial fibrillation. At the present time see no contraindication to continued anticoagulation if required. CBC will need to be monitored closely. Plan is for outpatient capsule endoscopy. Subjective Date/time seen: 10/30/19 09:15 Objective Data Vital Signs Vital Signs: Vital Signs - 24 hr 10/29/19 12:00 10/29/19 12:52 10/29/19 13:40 Temperature 36.8 C Pulse Rate 59 L 58 L 58 L Respiratory Rate 16 19 Blood Pressure 147/54 H 85/35 L Pulse Oximetry 97 96 10/29/19 13:50 10/29/19 14:00 10/29/19 14:03 Temperature 36.3 C L Pulse Rate 60 66 58 L Respiratory Rate 19 18 16 Blood Pressure 87/35 L 131/46 L 120/49 L Pulse Oximetry 99 100 98 10/29/19 16:00 10/29/19 19:40 10/29/19 20:00 Temperature 36.1 C L Pulse Rate 64 64 62 Respiratory Rate 16 Blood Pressure 125/45 L Pulse Oximetry 96 98 10/30/19 00:00 10/30/19 04:00 10/30/19 06:00 Temperature 36.6 C Pulse Rate 63 63 64 Respiratory Rate 16 Blood Pressure 121/40 L Pulse Oximetry 92 Intake/Output Intake/Output: Intake & Output 10/27/19 10/28/19 10/29/19 10/30/19 23:59 23:59 23:59 23:59 Intake Total 2121 660 640 Output Total 1100 Balance 2121 -440 640 Meds/Results Medications: Active Medications Generic Name Dose Route Start Last Admin Trade Name Eleanor PRN Reason Stop Dose Admin Apixaban 2.5 mg 10/28/19 09:00 10/30/19 09:13 Eliquis PO 2.5 mg BID YOLY Administration Aspirin 81 mg 10/28/19 09:00 10/29/19 14:31 Aspirin Ec PO 81 mg DAILY YOLY Administration Atorvastatin Calcium 20 mg 10/28/19 09:00 10/30/19 09:12 Lipitor PO 20 mg DAILY YOLY Administration Calcium Acetate 667 mg 10/28/19 08:00 10/30/19 09:12 Phoslo PO 667 mg TIDWM YOLY Administration Dextrose 12.5 gm 10/29/19 08:22 Dextrose 50% Syringe IV PUSH PRN PRN Hypoglycemia Protocol Epoetin Rashaun 10,000 units 10/29/19 15:05 10/29/19 18:03 Epogen SUB-Q 10,000 units MOWEFR YOLY Administration Finasteride 5 mg 10/28/19 18:00 10/29/19 17:46 Proscar PO 5 mg QPM YOLY Administration Fish Oil 1 gm 10/28/19 09:00 10/30/19 09:12 Lovaza PO 1 gm DAILY YOLY Administration Furosemide 80 mg 10/28/19 09:00 10/30/19 09:13 Lasix Tablet PO 80 mg BID YOLY Administration Glucagon 1 mg 10/29/19 08:22 Glucagon For Inj IM PRN PRN Hypoglycemia Protocol Glucose 15 gm 10/29/19 08:22 Glutose 15 PO PRN PRN Hypoglycemia Protocol Dextrose 1,000 mls @ 100 mls/hr 10/29/19 08:22 Dextrose 5% 1,000 Ml IVPB PRN PRN Hypoglycemia Protocol Insulin Aspart 8 units 10/29/19 14:35 10/29/19 18:01 Novolog 0.083 units/kg (8 units) 8 units SUB-Q Administration [facility] Insulin Aspart 4 - 8 units 10/30/19 08:00 10/30/19 07:31 Novolog SUB-Q Not Given [facility] Protocol Insulin Glargine 22 units 10/29/19 21:00 10/29/19 21:09 Lantus SUB-Q 22 units HS YOLY Administration Levothyroxine Sodium
[2019-10-30 11:30] LABS: Glucose Point of Care 143 (65-105)
[2019-10-30 13:08] LABS: Hematocrit 26.6 % (42.0-52.0); Hemoglobin 8.4 g/dL (14.0-18.0)
[2019-10-30] MEDS: HOME MEDICATION INSULIN 1 EACH SUB-Q (14:00)
--- NOTE | 2019-10-30 14:49 | PM.PNNEP ---
Progress Note: A&P Assessment and Plan (1) Anemia: Qualifiers: Anemia type: due to chronic kidney disease Chronic kidney disease stage: on chronic dialysis Qualified Code(s): N18.6 - End stage renal disease; D63.1 - Anemia in chronic kidney disease; Z99.2 - Dependence on renal dialysis Code(s): D64.9 - Anemia, unspecified Status: Acute Assessment and Plan: The patient has anemia. He has stools that are guaiac positive as an outpatient. Colonoscopy done which showed internal hemorrhoids with stigmata of bleeding. EGD was normal Hemoglobin looks stable. It does go up and down a bit. He is on Epogen. His reticulocyte count is 3.72. This denotes a reasonable dose of Epogen. It sounds like his anemia is more from blood loss than poor production. He will get blood work as an outpatient. I asked him to call the dialysis nurse on Friday to get some blood work done and notify Dr. Colunga of the blood work. (2) Diabetes mellitus with hyperglycemia, with long-term current use of insulin: Qualifiers: Diabetes mellitus type: type 2 Qualified Code(s): E11.65 - Type 2 diabetes mellitus with hyperglycemia; Z79.4 - o[facility]erman (current) use of insulin Code(s): E11.65 - Type 2 diabetes mellitus with hyperglycemia; Z79.4 - oysterman (current) use of insulin Status: Inactive Assessment and Plan: He is on Accu-Cheks sugars seem to be doing pretty well. (3) DM (diabetes mellitus): Code(s): E11.9 - Type 2 diabetes mellitus without complications Status: Inactive Assessment and Plan: He is on Accu-Cheks and sliding-scale insulin. (4) A-fib: Qualifiers: Atrial fibrillation type: unspecified persistent Qualified Code(s): I48.19 - Other persistent atrial fibrillation Code(s): I48.91 - Unspecified atrial fibrillation Status: Chronic Assessment and Plan: His heart rate is under good control. Heart rate is 64 right now. (5) CHF (congestive heart failure): Qualifiers: Heart failure type: diastolic Heart failure chronicity: chronic Qualified Code(s): I50.32 - Chronic diastolic (congestive) heart failure Code(s): I50.9 - Heart failure, unspecified Status: Chronic Assessment and Plan: He has no swelling but he does have pleural effusions. He is comfortable breathing on room air. (6) End stage renal disease on dialysis: Code(s): N18.6 - End stage renal disease; Z99.2 - Dependence on renal dialysis Status: Acute Assessment and Plan: The patient has end-stage renal disease on peritoneal dialysis. Will continue with current regimen Subjective Date/time seen: 10/30/19 14:49 Interval history: Tadeo is feeling about the same. No chest pain or shortness of Breath He did well in physical therapy today. He is eager for discharge He is on dialysis and tolerating it well. There getting a new machine.. He was seen at 2:00 p.m. Review of Systems Cardiovascular: Cardiovascular: Reports no additional cardiovascular complaints Respiratory: Respiratory: Reports no additional respiratory complaints Gastrointestinal: Gastrointestinal: Reports no additional gastrointestinal complaints Genitourinary: Genitourinary: Reports no additional male genitourinary complaints Exam Narrative: Exam Narrative: WDWN in NAD skin no rash or subcu nodules head ncat lungs clear cor reg no rub abd BS+ nontender and soft ext no edema. No cyanosis Objective Data Vital Signs Vital Signs: Vital Signs - 24 hr 10/29/19 16:00 10/29/19 19:40 10/29/19 20:00 Temperature 36.1 C L Pulse Rate 64 64 62 Respiratory Rate 16 Blood Pressure 125/45 L Pulse Oximetry 96 98 10/30/19 00:00 10/30/19 04:00 10/30/19 06:00 Temperature 36.6 C Pulse Rate 63 63 64 Respiratory Rate 16 Blood Pressure 121/40 L Pulse Oximetry 92 10/30/19 08:00 10/30/19 12:00 10/30/19 13:40 Temperat
--- NOTE | 2019-10-30 15:06 | PM.DS ---
DS: Diagnosis Admitting Diagnosis Admitting Diagnosis: Anemia, unspecified Discharge Diagnosis (1) Anemia: Qualifiers: Anemia type: due to chronic kidney disease Chronic kidney disease stage: on chronic dialysis Qualified Code(s): N18.6 - End stage renal disease; D63.1 - Anemia in chronic kidney disease; Z99.2 - Dependence on renal dialysis Code(s): D64.9 - Anemia, unspecified Status: Acute Assessment and Plan: Date of Service 10/30/19 Mr. Jean-Baptiste is a 78yo M History of end-stage renal disease on peritoneal dialysis, insulin-dependent type 2 diabetes mellitus with an insulin pump, chronic atrial fibrillation on systemic anticoagulation with Eliquis, and chronic diastolic congestive heart failure who presented to the ED for evaluation at the instruction of Dr. Colunga who called the patient regarding a Hgb of 6.0 on outpatient lab work. Mr. Jean-Baptiste's Hgb was 6.8 on arrival, down to 6.2 shortly after at which time he received 2 units packed RBC transfusion. He was maintained on his peritoneal dialysis each evening. He was noted to have positive stool occult blood on outpatient testing through [facility], and noted that he had an upcoming appointment with Dr. Randhawa next week. Dr. Randhawa was consulted here and Mr. Jean-Baptiste underwent colonoscopy 10/29/[address] Randhawa. Colonoscopy revealed internal hemorrhoids with stigmata of bleeding which could account for the stool occult blood, but not likely enough bleeding to cause such a profound drop in Hgb. Upper endoscopy was unremarkable. He is noted to have anemia of chronic renal disease with Hgb 8-10 at baseline. He received Epogen here by the recommendation of Nephrology, and will continue to receive Epogen at dialysis clinic. His home Eliquis was briefly held in light of his profound anemia prior to GI evaluation, resumed at discharge initially, Mr. Jean-Baptiste was maintained on his home insulin pump here. At some point during the night it had been taken off one evening, and his blood sugar was 519 the following morning. This was the day of his colonoscopy and since he was NPO, the insulin pump was left off and he was maintained on a basal- bolus subcu regimen here. His insulin pump was re-initiated prior to discharge. He does have a Ceannate continuous glucose monitor as well. He was hemodynamically stable for discharge on 10/30/2019 with instructions to follow-up with Dr. Randhawa for possible capsule endoscopy to check for any alternate sites of bleeding. he will continue to monitor his blood sugars regularly and follow-up with nephrology for regular lab work and dialysis. Hemoglobin was low but stable at 8.4 prior to discharge. Consultations: Nephrology - Dr. Charbel Wiley GI-Dr. Wilton Randhawa Acute on chronic. Patient known to have anemia of chronic kidney disease, presents with Hgb 6.2 and positive stool occult blood. Hgb was 10.4 in Jul 2019. Had GI evaluation of anemia in 2016 which was unremarkable. He describes he had positive stool occult testing this week and was scheduled to see Dr Randhawa in the upcoming weeks. He has not noticed hematochezia or melena at home. Hgb 8.0 this AM; received 2 units packed RBC 10/27. Monitor H&H and transfuse PRN. Appreciate GI consultation from Dr Randhawa - going for upper and lower endoscopy this afternoon. (2) End stage renal disease on dialysis: Code(s): N18.6 - End stage renal disease; Z99.2 - Dependence on renal dialysis Status: Acute Assessment and Plan: Now on peritoneal dialysis. He will continue to follow-up with Dr. Colunga for dialysis needs and Epogen. (3) Type 2 diabetes mellitus without complication, with long-term current use of insulin: Code(s): E11.9 - Type 2 diabetes mellitus without complications; Z79.4 - [facility] (current) use of insulin Status: Chronic Assessment and Plan: Continue home
[2019-10-30 15:49] LABS: Glucose Point of Care 172 (65-105)
== END 2019-10-30 16:00 | disposition home or self-care (01) | DRG 291 ==
LOC: ANHED 23:17 → ANH2MED 10-28 01:54
PROVIDERS: Internal Medicine Gastroenterology; Internal Medicine Nephrology; Physician Assistant; Admitting Provider Internal Medicine; Emergency Provider General Practice; PCP Internal Medicine; Visit Provider Hospitalist
PROC: 0DJ08ZZ Inspection of Upper Intestinal Tract, Via Natural or Artificial Opening Endoscopic (ICD-10-PCS; CPT 43235; principal; 2019-10-29 11:30)
DX: I13.2 Hypertensive heart and chronic kidney disease with heart failure and with stage 5 chronic kidney disease, or end stage renal disease (principal); N18.6 End stage renal disease; I50.32 Chronic diastolic (congestive) heart failure; I48.20 Chronic atrial fibrillation, unspecified; D63.1 Anemia in chronic kidney disease; K64.8 Other hemorrhoids; E11.22 Type 2 diabetes mellitus with diabetic chronic kidney disease; Z99.2 Dependence on renal dialysis; E11.65 Type 2 diabetes mellitus with hyperglycemia; M19.90 Unspecified osteoarthritis, unspecified site; E03.9 Hypothyroidism, unspecified; E78.00 Pure hypercholesterolemia, unspecified; I25.10 Atherosclerotic heart disease of native coronary artery without angina pectoris; N40.0 Benign prostatic hyperplasia without lower urinary tract symptoms; E83.119 Hemochromatosis, unspecified; Z86.73 Personal history of transient ischemic attack (TIA), and cerebral infarction without residual deficits; Z87.891 Personal history of nicotine dependence; Z95.820 Peripheral vascular angioplasty status with implants and grafts; Z79.4 Long term (current) use of insulin; Z79.82 Long term (current) use of aspirin; Z98.42 Cataract extraction status, left eye; Z98.41 Cataract extraction status, right eye; Z79.01 Long term (current) use of anticoagulants
CPT/HCPCS: 36415; 36430; 71045; 80053; 80069; 82274; 82728; 83036; 83540; 83550; 83735; 85014; 85018; 85025; 85046; 85610; 85730; 86706; 86850; 86900; 86901; 86922; 87340; 90945; 93005; 97161; 97165; 99285; A9270; C9113; J1815; J2704; J7040; J7050; P9016; Q4081

== ENCOUNTER 2020-02-08 15:42 | Outpatient (CLI) | payer MEDICARE, OTHER, SELFPAY ==
[2020-02-08 17:57] LABS: Hemoglobin A1C 7.5 % (<5.7)
== END 2020-02-08 15:43 | disposition home or self-care (01) ==
PROVIDERS: PCP Internal Medicine; Visit Provider Nurse Practitioner
DX: E11.9 Type 2 diabetes mellitus without complications (principal); Z79.4 Long term (current) use of insulin
CPT/HCPCS: 36415; 83036

== ENCOUNTER 2020-04-04 07:21 | Inpatient (IN) | payer MEDICARE, OTHER, SELFPAY ==
[2020-04-04] VITALS (39 sets, daily range): BP systolic 78–116; BP diastolic 29–91; PULSE 35–128; RESP 5–28; TEMP 32.2–35.3; O2SAT 33–100
[2020-04-04 07:31] LABS: Glucose Point of Care > 500 (65-105)
--- NOTE | 2020-04-04 07:33 | ECG_ITS ---
Measurements Intervals [place] Rate: 51 P: OK: 0 QRS: 114 QRSD: 127 T: 17 QT: 534 QTc: 492 Interpretive Statements ATRIAL FIBRILLATION WITH SLOW VENTRICULAR RESPONSE RSR' IN V1 OR V2, CONSIDER RIGHT VENTRICULAR HYPERTROPHY OR RIGHT VCD BORDERLINE ST-T WAVE ABNORMALITY- DIFFUSE LEADS BASELINE WANDER- AVF, V2, V5-V6 ABNORMAL ECG Electronically Signed On 04-04-2020 8:24:47 CDT by Ed Hi D.O.
[2020-04-04 07:57] LABS: Basophils Percent Auto 0.1 % (0.2-1.2); Eosinophils Percent Auto 0.1 % (0-4.4); Immature Granulocyte Absolute 0.17 K/mm3 (0.00-0.031); Lymphocytes Absolute Auto 0.39 K/mm3 (0.9-3.2); Lymphocytes Percent Auto 2.3 % (18.3-44.2); Mean Platelet Volume 12.1 fl (7.4-10.4); Neutrophils Absolute Auto 15.1 K/mm3 (1.3-6.7); Neutrophils Percent Auto 90.5 % (45.5-73.1); Nucleated Red Blood Cells Perc 0.2 % (0.0-0.2); Platelet Count Result 283 k/mm3 (150-375); Red Blood Count 3.07 M/mm3 (4.6-6.20); Red Cell Distribution Width 22.4 % (11.5-14.5); White Blood Count 16.7 K/mm3 (4.5-10.0)
[2020-04-04 08:02] LABS: Alanine Aminotransferase 33 U/L (4-50); Albumin Level 3.1 g/dL (3.5-5.1); Alkaline Phosphatase 223 U/L (38-126); Aspartate Amino Transferase 52 U/L (17-59); Bilirubin,Total 1.1 mg/dL (0.2-1.3); Blood Urea Nitrogen 106 mg/dL (9-20); Carbon Dioxide 6 mmol/L (22-30); Chloride 75 mmol/L (98-107); Estimated CRCL calculation 9 ml/min; Estimated Glomerular Filt Rate 8; Potassium 5.3 mmol/L (3.4-5.0)
[2020-04-04 08:07] LABS: Add Urine Microscopic? YES; Appearance Urine Clear (Clear); Bilirubin Urine Negative (Negative); Blood Urine Negative (Negative); Color Urine Straw (Yellow); Glucose Urine UA 3+ mg/dL (Negative); Ketones Urine 1+ mg/dL (Negative); Leukocyte Esterase Ur Negative LEU/UL (Negative); Nitrate Urine Negative (Negative); Protein Urine 3+ mg/dL (Negative); Specific Grav Ur 1.013 (1.001-1.035); Urobilinogen Urine Negative mg/dL (<2.0); WBC Urine 0-3 /hpf
[2020-04-04 08:26] LABS: Anion Gap 35 mmol/L (8-16); Glucose 1857 mg/dL (75-110); Sodium 116 mmol/L (137-145)
[2020-04-04 08:32] LABS: Burr Cells 1+ (NORMAL); Hypochromasia 1+ (NORMAL); Ovalocytes 1+ (NORMAL); Platelet Estimate Adequate (Adequate)
[2020-04-04] MEDS: SODIUM CHLORIDE 0.9% IV 1,000 ML 999 ML IV CONT ×2 (08:32→10:00)
[2020-04-04 08:43] LABS: Alveolar/Arterial O2 Gradient 77.2 mmHg; Fractional Inspired Oxygen 21 %; HCO3 ABG 5.6 mEq/l (22.0-26.0); Methemoglobin ABG 0.4 %THb (0-1.5); Oxygen Content ABG 6.3 %vol (16.0-22.0); Oxyhemoglobin 56.4 % THb (90.0-100.0); PO2 FiO2 Ratio Arterial Blood 2.28 %; Reduced Hemoglobin 42.2 %THb (0-5.0)
[2020-04-04 08:45] LABS: PCO2 ABG 20.6 mmHg (35.0-45.0); PO2 ABG 47.9 mmHg (80.0-100.0); pH ABG 7.051 (7.350-7.450)
[2020-04-04 08:46] LABS: Device ROOM AIR; Site Drawn RIGHT BRACHIAL; Total Hemoglobin 7.8 g/dL (12.0-18.0)
[2020-04-04] MEDS: AMIODARONE 150 MG/D5W 100 ML 150 MG/100 ML BAG 600 MG IV CONT (09:09)
--- NOTE | 2020-04-04 09:29 | ECG_ITS ---
Measurements Intervals [place] Rate: 37 P: OR: 0 QRS: 102 QRSD: 204 T: -68 QT: 636 QTc: 499 Interpretive Statements ATRIAL FIBRILLATION WITH TRANSIENT IDIOVENTRICULAR RHYTHM RIGHT AXIS DEVIATION BORDERLINE ST-T WAVE ABNORMALITY- ANTEROLAT/INF LEADS BASELINE ARTIFACT- I, II, III, AVR, V4 ABNORMAL ECG Electronically Signed On 04-04-2020 9:47:10 CDT by Ed Hi D.O.
--- NOTE | 2020-04-04 09:29 | ED.AMS ---
HPI - Altered Mental Status General Chief Complaint: Altered Mental Status Stated Complaint: ALOC Time Seen by Provider: 04/04/20 07:34 Source: family and EMS History of Present Illness HPI narrative: 79 years old white male brought to the emergency room by ambulance because of confusion noticed this morning by his . Last time was seen in his usual state of health at 10 PM last night. History of peritoneal dialysis, diabetes, on insulin pump. No family member at the bedside, phone call to his who told me that she does not know when the last time patient had dialysis, but told me that patient is DNR exactly like her. She denies that the patient complained of any thing yesterday. Patient had history of atrial fibrillation, anemia, arthritis, AV fistula left upper extremity, benign prostatic hyperplasia, bronchitis, coronary artery disease, CHF, end-stage renal disease on dialysis, peritoneal, the dialysis catheter was placed on July 2019, hypertension, hemochromatosis, history of GI bleed, Related Data Home Medications Medication Instructions Recorded Confirmed aspirin 81 mg tablet,delayed 81 mg PO DAILY 05/19/19 02/15/20 release omega-3 fatty acids 1,000 mg 1,000 mg PO DAILY 05/19/19 02/15/20 capsule ICaps AREDS2 2 cap PO DAILY 07/28/19 02/15/20 furosemide 40 mg tablet 80 mg PO BID tablet 08/19/19 02/15/20 calcium acetate(phosphat bind) 667 mg PO AC 10/28/19 02/15/20 Allergies Allergy/AdvReac Type Severity Reaction Status Date / Time gabapentin Allergy Severe Weakness Verified 02/15/20 09:45 Review of Systems Review of Systems: ROS unobtainable: Yes unobtainable due to medical condition PMFSH Past Medical History Medical History A-fib Persistent atrial fibrillation; Follows with Dr Mantilla last seen 08/25/19 Anemia Of chronic disease Arthritis AV fistula Left upper arm BPH (benign prostatic hyperplasia) Bronchitis CAD (coronary artery disease) Cataracts, bilateral CHF (congestive heart failure) Diastolic. Last echo 04/21/19 shows normal LV systolic function EF 60-65%, mild tricuspid and mitral regurgitation End stage renal disease on dialysis On peritoneal dialysis and follows with Dr Colunga. PD dialysis catheter placed Jul 2019. Essential hypertension Hemochromatosis History of GI bleed History of inguinal hernia Hypercholesterolemia Hypothyroidism Peritoneal dialysis catheter in place Shingles TIA (transient ischemic attack) X2 Type 2 diabetes mellitus without complication, with long-term current use of insulin Wrist fracture, left Surgical History Surgical History H/O left wrist surgery Pin H/O vascular surgery Mar 2019 balloon stenting to left upper extremity AV fistula History of inguinal hernia repair Ventral hernia repair yesterday Jul 2019 at same time as PD catheter placement Hx of bilateral cataract extraction Family History Family History Mother Cerebrovascular accident Family history of heart disease in male family member before age 55 Father Hypertension Family history of coronary artery disease Malignant neoplasm of prostate Social History Social History Social History: Mr. 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 He denies alcohol, tobacco, or other substance use. He smoked cigarettes for a brief period of time while in the in the 1960s, none since that time. He designates his , Gretchen, to be his surrogate decision maker and wishes to be full code status. Smoking packs per day: 1 Smoking cigarettes per day: 20.0 Years smoked: 3 Smoking pack-years: 3.00 Smoking status: Never smoker Tobacco type: cigarettes Second hand tobacco smoke exposure: Yes Smoking end
[2020-04-04 09:35] LABS: Magnesium 2.5 mg/dL (1.6-2.3)
[2020-04-04] MEDS: ATROPINE SULFATE 1 MG/10 ML SYRINGE (09:36)
[2020-04-04 09:47] LABS: INR 1.4; Prothrombin Time 16.9 Seconds (11.1-14.7)
[2020-04-04 09:48] LABS: Partial Thromboplastin Time 36.4 SECONDS (22.3-36.8)
[2020-04-04 10:06] LABS: Beta-Hydroxybutyrate/Acetoacetate 6.31 mmol/L (0.02-0.27)
[2020-04-04] MEDS: INSULIN HUMAN REGULAR (*BKC) 100 UNITS in SODIUM CHLORIDE 0.9% IV 99 ML 30 UNITS IV CONT (10:10)
[2020-04-04] MEDS: INSULIN HUMAN REGULAR (*BKC) 100 UNITS/ML 10 UNITS IV PUSH (10:11)
[2020-04-04 10:14] LABS: Glucose Point of Care > 500 (65-105)
[2020-04-04] MEDS: ATROPINE SULFATE 1 MG/ML VIAL 0.4 MG IV PUSH (10:38)
[2020-04-04] MEDS: DOPamine 400 MG/D5W 250 ML 400 MG/250 ML BAG 15.3 MG IV CONT (10:52)
--- NOTE | 2020-04-04 11:10 | ADMGEN ---
This patient, Tadeo Jean-Baptiste, was admitted to Intensive Care Unit-8 @1100. Patient/family oriented to hospital policies and general routines including ID bracelet, bed and alarms, visiting hours, pain management, procedures, bathroom and other care routines, personal items, smoking policy, room service/diet, and visiting hours. Valuables list has been completed. Information on how to activate the Rapid Response Team has been discussed. Patient/Family are encouraged to report perceived risks to care and to ask questions if they do not understand what they are told or what they should do.
--- NOTE | 2020-04-04 11:15 | PC.NURSE ---
Addendum entered by Kyle Hickman RN 04/04/20 16:28: 900 Pt. beginning to have runs of ventricular tachycardia. EDP aware and ordered 150mg of amiodarone bolus via verbal order readback. See [facility] for charting. Original Note: 930 Pt. heart rate began dropping into the 20s, EDP notified. See mar for medication intervention. Pt. going into runs of ventricular tachycardia EDP aware. . 1015 Pt. bp was 70/40 via manual blood pressure. Pt. HR dropping into the 10s, Pt. has a pulse, EDP aware and notified. Consent obtained from Pt. for central line access. Another dose of atropine ordered by EDP via verbal order readback. See MAR for charting. 1020 Pt. HR improving. Pt. O2 saturations declining, Pt. beginning to have agonal respirations. Pt. was placed on NRB 15LPM. O2 saturations improving. EDP notified and is aware. Pt. color improving. Saturations increased from 33% to 91%. 1040 Central insertion completed, Pt. started on Dopamine drip 5mcg/kg/min ordered by EDP via verbal order readback. BP improving, HR improving, Pt. is on 10LPM of NRB with o2 saturation at 94%. 1100 Pt. taken to the ICU with 2 RNs.
--- NOTE | 2020-04-04 11:54 | WPDCNINT ---
Assessment and Plan Assessment and plan (1) Coma, hyperosmolar nonketotic: Code(s): E11.01 - Type 2 diabetes mellitus with hyperosmolarity with coma Status: Acute Assessment and Plan: patient presented with blood sugars of 1857, unresponsiveness, hypothermic, hypotensive, bradycardic - patient was given 2 L IV fluids, started on insulin infusion - severe anion gap metabolic acidosis - patient was in AFib with bradycardia, was given amiodarone bolus in the ER - in the ICU discussed at length with the patient's who stated that patient did not want to be on any life support measures and wants him to be made comfortable and withdraw support. (2) Bradycardia: Code(s): R00.1 - Bradycardia, unspecified Status: Acute Assessment and Plan: Bradycardia could be related to hypothermia, hyperosmolar nonketotic coma (3) Hypotension: Code(s): I95.9 - Hypotension, unspecified Status: Acute Assessment and Plan: patient with hypotension, could be related to bradycardia, infection, hypothermia (4) CHF (congestive heart failure): Qualifiers: Heart failure type: diastolic Heart failure chronicity: chronic Qualified Code(s): I50.32 - Chronic diastolic (congestive) heart failure Code(s): I50.9 - Heart failure, unspecified Status: Chronic Assessment and Plan: patient with history of diastolic heart failure Additional Plan discussed with , Radha and updated with patient's condition and plan of care. She stated the patient wishes are not to get any aggressive or life sustaining measures. She wants him to be a DNR/DNI. She was to make him comfortable and withdraw support. Naval Architect Specialist was at bedside, also discussed with care coordination regarding some of her insurance issues which were clarified. Code status: DNR /DNI critical care time spent: 48 minutes Due to a high probability of clinically significant, life threatening deterioration, the patient required my highest level of preparedness to intervene emergently and I personally spent this critical care time directly and personally managing the patient. This critical care time included obtaining a history; examining the patient; pulse oximetry; ordering and review of studies; arranging urgent treatment with development of a management plan; evaluation of patient's response to treatment; frequent reassessment; and discussions with other providers. It was exclusive of separately billable procedures and treating other patients and teaching time. Please see Assessment and Plan section and the rest of the note for further information on patient assessment and treatment [employer] Consult Note Consult date: 04/04/20 Time Seen: 11:24 Reason for consult: severe hyperglycemia, HHS, anion gap metabolic acidosis, bradycardia, shock, hyponatremia, encephalopathy HPI: Tadeo Jean-Baptiste is a 79 year old male with past medical history of end-stage renal disease on peritoneal dialysis, history of atrial fibrillation, anemia, BPH, coronary artery disease, diastolic heart failure, diabetes, essential hypertension, history of GI bleed, history of pneumonia, hypothyroidism, hypercholesterolemia presented to the ED on 04/04/2020 with complains of altered mental status. according the patient was doing fine yesterday and this morning he was less responsive in confused in the bed, she stated that he was doing fine until yesterday afternoon. He is on peritoneal dialysis but she does not know if he is regular with that. She states that he takes insulin but she does not know if he takes it regularly. In the ER patient was found to have a blood sugar of 1857, severe metabolic acidosis with anion gap of 35. BUN of 106, Creatinine of 6.8, potassium of 5.3. WBC of 16.7, hemoglobin of 10.2, platelets of 283. Patient was bradycardic in the 30s, systolic blood pressures in the 70s and 80s, central events added, pat
[2020-04-04] MEDS: LORazepam INJ (*CRX) 2 MG/ML VIAL IV PUSH (11:56)
[2020-04-04] MEDS: MORPHINE SULFATE (*CRX) 2 MG/ML INJ IV PUSH (11:57)
[2020-04-04 12:05] LABS: Glucose 1795 mg/dL (75-110)
[2020-04-04] MEDS: MORPHINE SULFATE INJ (*CRX) 10 MG/ML AMP 5 MG IV PUSH (12:24)
--- NOTE | 2020-04-04 13:00 | PM.IMHP ---
H&P: HPI History of Present Illness Date/Time: 04/04/20 13:00 Chief complaint: HYPEROSMOLAR NONKETOTIC COMA V TECH Narrative: Tadeo Jean-Baptiste is a 79 year old male with ESRD and DM on an insulin pump here after being found confused. Patient unable to provide history. Patient seen in ED and found to have hyperosmolar coma witih a glucose of 1857 and a pH 7.05. Patient was bradycardic and hypothermic. He did receive Amio bolus in ED then Atropine and subseqyently placed on Dopamine drip. He was also given IV fluids and insulin. He was placed on Bear hugger and admitted for further care to the ICU. Since admission, family has decided to withdraw care. Patient is DNR. Review of Systems Review of Systems: ROS unobtainable: Yes unobtainable due to mental status PMFSH Past Medical History Medical History A-fib Persistent atrial fibrillation; Follows with Dr Mantilla last seen 08/25/19 Anemia Of chronic disease Arthritis AV fistula Left upper arm BPH (benign prostatic hyperplasia) Bronchitis CAD (coronary artery disease) Cataracts, bilateral CHF (congestive heart failure) Diastolic. Last echo 04/21/19 shows normal LV systolic function EF 60-65%, mild tricuspid and mitral regurgitation End stage renal disease on dialysis On peritoneal dialysis and follows with Dr Colunga. PD dialysis catheter placed Jul 2019. Essential hypertension Hemochromatosis History of GI bleed History of inguinal hernia Hypercholesterolemia Hypothyroidism Peritoneal dialysis catheter in place Shingles TIA (transient ischemic attack) X2 Type 2 diabetes mellitus without complication, with long-term current use of insulin Wrist fracture, left Surgical History Surgical History H/O left wrist surgery Pin H/O vascular surgery Mar 2019 balloon stenting to left upper extremity AV fistula History of inguinal hernia repair Ventral hernia repair yesterday Jul 2019 at same time as PD catheter placement Hx of bilateral cataract extraction Family History Family History Mother Cerebrovascular accident Family history of heart disease in male family member before age 55 Father Hypertension Family history of coronary artery disease Malignant neoplasm of prostate Social History Social History (Updated 04/04/20 @ 13:09 by Florentino Narvaez MD) Social History: Mr. Jean-Baptiste lives at home in [place] with his , Gretchen. 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 No hx of alcohol, tobacco, or other substance use. He smoked cigarettes for a brief period of time while in the in the 1960s, none since that time. His , Gretchen, to be his surrogate decision maker and he is DNR status. Smoking packs per day: 1 Smoking cigarettes per day: 20.0 Years smoked: 3 Smoking pack-years: 3.00 Smoking status: Former smoker Tobacco type: cigarettes Alcohol intake: never Substance use: never Gender identity (if verbalized by the patient): Male Spiritual care concerns: No Agree to blood products: Yes Meds Home Medications and Allergies Home Medications Medication Instructions Recorded Confirmed Type aspirin 81 mg tablet,delayed 81 mg PO DAILY 05/19/19 02/15/20 History release omega-3 fatty acids 1,000 mg 1,000 mg PO DAILY 05/19/19 02/15/20 History capsule ICaps AREDS2 2 cap PO DAILY 07/28/19 02/15/20 History furosemide 40 mg tablet 80 mg PO BID tablet 08/19/19 02/15/20 History calcium acetate(phosphat bind) 667 mg PO AC 10/28/19 02/15/20 History atorvastatin 20 mg tablet 20 mg PO DAILY #90 tablet 12/23/19 02/15/20 Rx insulin aspart U-100 100 unit/mL 1 sliding scale dose SUB-Q 02/15/20 Rx subcutaneous solution .COMPLEX #1 vial MDD 50 insulin aspart U-100 100 unit/mL 1 sliding scale dose SUB-Q 02/15/20 Rx subcutaneous solution .COMP
--- NOTE | 2020-04-04 14:16 | PM.DDS ---
Discharge Sum: Prov Provider Primary care physician: Juan Hancock DO Admitting provider: Jt Narvaez MD Attending physician on admission: Florentino Narvaez Consults: 04/04/20 09:45 Consult to Physician Routine Comment: Consulting Provider: Samantha Colunga Reason for consultation: Peritoneal dialysis Has provider been notified: Yes Consult to Physician Routine Comment: Consulting Provider: Nasrin Ornelas Reason for consultation: Hyperosmolar nonketotic coma, V. tach Has provider been notified: Yes Consult to Physician Routine Comment: pt of [facility] Consulting Provider: Jack Tillman Reason for consultation: V. tach Has provider been notified: Yes Pronouncing clinician: Nasrin Ornelas Discharge Sum: Diag PCOD Hyperosmolar coma with hypotension and bradycardia Contributing Factors (1) Hypotension: (2) Bradycardia: (3) Coma, hyperosmolar nonketotic: (4) Diabetes mellitus: (5) Hemochromatosis: (6) End stage renal disease on dialysis: (7) A-fib: Discharge Sum: Summary Date and Time Date of admission: 04/04/20 09:41 Date of : 04/04/20 Summary Details: Patient has been admitted to ICU. His condition is critical. Family has been made aware. They opted to proceed with comfort measures only. Treatment was discontinued. He was started on morphine and Ativan for comfort. No family at bedside at this time. Please see H&P for details. No answer at the phone number listed. Additional Data Family: attempt made Attending physician: Jt Narvaez MD Was code activated?: No
[2020-04-04 14:56] LABS: Mean Corpuscular HGB Conc 28.6 g/dl (32-36); Mean Corpuscular Hemoglobin 31.3 pg (26-34); Mean Corpuscular Volume 109.4 fl (80-100)
== END 2020-04-04 14:06 | disposition expired | DRG 637 ==
LOC: ANHED 09:48 → ANHICU 10:41
PROVIDERS: Internal Medicine; Admitting Provider Internal Medicine; Emergency Provider Emergency Medicine; PCP Internal Medicine; Visit Provider Internal Medicine
DX: E11.01 Type 2 diabetes mellitus with hyperosmolarity with coma (principal); N18.6 End stage renal disease; I48.19 Other persistent atrial fibrillation; I13.2 Hypertensive heart and chronic kidney disease with heart failure and with stage 5 chronic kidney disease, or end stage renal disease; I50.32 Chronic diastolic (congestive) heart failure; E87.1 Hypo-osmolality and hyponatremia; I47.2 Ventricular tachycardia; D63.8 Anemia in other chronic diseases classified elsewhere; E11.22 Type 2 diabetes mellitus with diabetic chronic kidney disease; I95.9 Hypotension, unspecified; R00.1 Bradycardia, unspecified; Z66 Do not resuscitate; N40.0 Benign prostatic hyperplasia without lower urinary tract symptoms; Z99.2 Dependence on renal dialysis; E03.9 Hypothyroidism, unspecified; E78.00 Pure hypercholesterolemia, unspecified; I25.10 Atherosclerotic heart disease of native coronary artery without angina pectoris; E83.119 Hemochromatosis, unspecified; Z86.73 Personal history of transient ischemic attack (TIA), and cerebral infarction without residual deficits; Z79.4 Long term (current) use of insulin; Z79.82 Long term (current) use of aspirin; Z87.891 Personal history of nicotine dependence; Z96.41 Presence of insulin pump (external) (internal); Z98.42 Cataract extraction status, left eye; Z98.41 Cataract extraction status, right eye
CPT/HCPCS: 36415; 36556; 36600; 80053; 81001; 82010; 82375; 82805; 82947; 82948; 83050; 83735; 84100; 85025; 85610; 85730; 87040; 93005; 96374; 96375; 99291; C1751; J0282; J0461; J1265; J1815; J2060; J2270; J7030